=== PATIENT | female | born 1945 | race American Indian/Alaskan Native ===

== ENCOUNTER 2017-10-30 13:59 | Inpatient (IN) | payer MEDICARE, OTHER ==
--- NOTE | 2017-10-30 14:23 | ED PDOC ---
Arrival/HPI - General Chief Complaint: Medical Clearance Time Seen by Provider: 10/30/17 14:10 Historian: Patient, Family - History of Present Illness Narrative History of Present Illness (Text): 10/30/17 14:19 72yo female with no PMHx who was referred to ED by her PMD for further evaluation of abnormal abdominal/Chest CT. Patient's daughter report one month history of sudden weight loss, dizziness and poor appetite. She saw her PMD for the symptoms and had abdominal/Chest CT done outpt today. She was called by the PMD and referred to ED. she reports right ribs pain. Denies abdominal pain, nausea, vomiting, diarrhea, fever, chills, focal weakness, melena, hematmesis, chest pain, SOB, any other complaint. Past Medical History - Provider Review Nursing Documentation Reviewed: Yes - Infectious Disease Hx of Infectious Diseases: None - Psychiatric Hx Substance Use: No Family/Social History - Physician Review Nursing Documentation Reviewed: Yes Family/Social History: Unknown Family HX Smoking Status: Never Smoked Hx Alcohol Use: Yes Frequency of alcohol use: Socially Hx Substance Use: No Allergies/Home Meds Allergies/Adverse Reactions: Allergies No Known Allergies Allergy (Verified 10/30/17 14:09) Home Medications: Home Meds Medication Instructions Recorded Confirmed No Known Home Med 10/30/17 10/30/17 Review of Systems - Physician Review All systems were reviewed & negative as marked: Yes - Review of Systems Constitutional: Normal Eyes: Normal ENT: Normal Respiratory: Normal Cardiovascular: Normal Gastrointestinal: Normal Genitourinary Female: Normal Musculoskeletal: Arthralgias (Right ribs pain) Skin: Normal Neurological: Normal Endocrine: Normal Hemo/Lymphatic: Normal Psychiatric: Normal Physical Exam Vital Signs Reviewed: Yes Vital Signs Temp Pulse Resp BP Pulse Ox 10/30/17 15:41 98 H 18 152/86 H 98 10/30/17 14:05 98.6 F 105 H 18 156/94 H 98 Temperature: Afebrile Blood Pressure: Normal Pulse: Tachycardic Respiratory Rate: Normal Appearance: Positive for: Well-Appearing, Non-Toxic, Comfortable Pain Distress: None Mental Status: Positive for: Alert and Oriented X 3 - Systems Exam Head: Present: Atraumatic, Normocephalic Pupils: Present: PERRL Extroacular Muscles: Present: EOMI Conjunctiva: Present: Normal Mouth: Present: Moist Mucous Membranes Neck: Present: Normal Range of Motion Respiratory/Chest: Present: Clear to Auscultation, Good Air Exchange, Tender to Palpation (right anterior ribs). No: Respiratory Distress, Accessory Muscle Use , Wheezes, Decreased Breath Sounds, Rales, Retracting, Rhonchi, Tachypneic Cardiovascular: Present: Regular Rate and Rhythm, Normal S1, S2. No: Murmurs Abdomen: Present: Normal Bowel Sounds. No: Tenderness, Distention, Peritoneal Signs Back: Present: Normal Inspection Upper Extremity: Present: Normal Inspection. No: Cyanosis, Edema Lower Extremity: Present: Normal Inspection. No: Edema Neurological: Present: GCS=15, CN II-XII Intact, Speech Normal Skin: Present: Warm, Dry, Normal Color. No: Rashes Psychiatric: Present: Alert, Oriented x 3, Normal Insight, Normal Concentration Medical Decision Making ED Course and Treatment: 10/30/17 15:57 PT presented for stated history. Lab was unremarkable with the exception of the elevated LDH and she was given fluid in ED. Abdominal/Pelvis/chest CT Case was DW Dr. Jimenez and pt was admitted. He requested Drs. Leblanc and William consult. - Lab Interpretations Lab Results: 10/30/17 14:45 10/30/17 14:45 Lab Results 10/30/17 14:45: Sodium 137, Potassium 3.5 L, Chloride 101, Carbon Dioxide 26, Anion Gap 14, BUN 8, Creatinine 0.6 L, Est GFR ( Amer) > 60, Est GFR (Non -Af Amer) > 60, Random Glucose 109, Calcium 9.5, Total Bilirubin 0.4, AST 52 H, ALT 20, Alkaline Phosphatase 207 H, Lactate Dehydrogenase 1033 H, Total Creatine Kinase 59, Troponin I < 0.01, Total Protein 7.1, Albumin 3.3, Globulin 3.8, Albumin/Globulin Ratio 0.9 L, Amylase 52, Lipase 69 10/30/17 14:45: PT 13.1 H, INR 1.15 H, APTT 31.3 10/30/17 14:45: WBC 10.4, RBC 4.19, Hgb 11.0 L, Hct 34.4 L, MCV 82.1, MCH 26.3, MCHC 32.0, RDW 14.9 H, Plt Count 429, MPV 9.2, Gran % 73.8 H, Lymph % (Auto) 16.3 L, [place] % (Auto) 7.3 H, Eos % (Auto) 2.4, Baso % (Auto) 0.2, Gran # 7.67 H , Lymph # 1.7, [place] # 0.8 H, Eos # 0.3, Baso # 0.02 - Medication Orders Current Medication Orders: Sodium Chloride (Sodium Chloride 0.9%) 1,000 mls @ 250 mls/hr IV .Q4H ONE Stop: 10/30/17 19:23 Disposition/Present on Arrival - Present on Arrival Any Indicators Present on Arrival: No History of DVT/PE: No History of Uncontrolled Diabetes: No Urinary Catheter: No History of Decub. Ulcer: No History Surgical Site Infection Following: None - Disposition Have Diagnosis and Disposition been Completed?: Yes Diagnosis: Intussusception, Metastatic disease Disposition: HOSPITALIZED Disposition Time: 15:50 Condition: FAIR Forms: [employer] (German)
[2017-10-30 14:56] LABS: BASO # 0.02 K/mm3 (0.0-2.0); BASO % 0.2 % (0.0-3.0); EOS # 0.3 (0.0-0.7); EOS % 2.4 % (1.5-5.0); GRAN # 7.67 (1.4-6.5); GRAN % 73.8 % (50.0-68.0); LYMPH # 1.7 (1.2-3.4); LYMPH % 16.3 % (22.0-35.0); MEAN CELL VOLUME 82.1 fl (80.0-105.0); MEAN CORPUSCULAR HEMOGLOBIN 26.3 pg (25.0-35.0); MEAN PLATELET VOLUME 9.2 fl (7.0-11.0); MONO # 0.8 (0.1-0.6); MONO % 7.3 % (1.0-6.0); RBC 4.19 10^6/uL (3.5-6.1); RED CELL DISTRIBUTION WIDTH 14.9 % (11.5-14.5); WHITE BLOOD COUNT 10.4 10^3/ul (4.5-11.0)
[2017-10-30 15:16] LABS: INR 1.15 (0.93-1.08); PARTIAL THROMBOPLASTIN TIME 31.3 Seconds (25.1-36.5); PROTHROMBIN TIME 13.1 SECONDS (9.4-12.5)
--- NOTE | 2017-10-30 15:18 | CARD ---
APPROVED REPORT EKG Measurement Heart [id number] <Conclusion> Sinus tachycardia Left axis deviation Left ventricular hypertrophy with QRS widening and repolarization abnormality Abnormal ECG
[2017-10-30 15:21] LABS: ALB/GLOB RATIO 0.9 (1.1-1.8); ALBUMIN 3.3 g/dL (3.0-4.8); ALT/SGPT 20 U/L (7-56); AMYLASE 52 U/L (35-125); AST/SGOT 52 U/L (14-36); BLOOD UREA NITROGEN 8 mg/dL (7-21); CALCIUM 9.5 mg/dL (8.4-10.5); GFR AFRICAN-AMERICAN > 60; GFR NON-AFRICAN AMERICAN > 60; LIPASE 69 U/L (23-300); TROPONIN I < 0.01 ng/mL
[2017-10-30] MEDS ORDERED: Sodium Chloride 0.9% 1,000 ML IV ONE (15:24)
--- NOTE | 2017-10-30 19:56 | CP.PCM.CON ---
History of Present Illness - History of Present Illness History of Present Illness: GENERAL SURGERY CONSULT NOTE FOR DR. NEWSOME 72yo F with no significant PMHx presents to the ED after being sent by PMD for abnormal CT scan findings. About 2 months ago, she started feeling dizzy. She also had no appetite and decreased taste. She had unintentional weight loss of 20 pounds over the past month and a half. She went to her PMD who sent her for outpatient CT which showed lesions in the liver, lung, and intussusception of ascending colon with abnormal thickening of colon. She was then sent to the ED for further workup. Patient denies having any abdominal pain. Her bowel movements are normal except that after she eats, she has to go to the bathroom within the next hour. She has not had any diarrhea. No bloody stools or black stools. She vomited once yesterday. She has mild right flank pain. She has never had a colonoscopy. PMHx: none Surgeries: tubal ligation Home medications: none Allergies: none Family history: no pertinent familial history of cancer Social history: social etoh, never smoked, denies illicit drug use Review of Systems - Review of Systems All systems: reviewed and no additional remarkable complaints except (as per HPI ) Past Patient History - Infectious Disease Hx of Infectious Diseases: None - Past Social History Smoking Status: Never Smoked Alcohol: Social Drugs: Denies - CARDIAC Hx Cardiac Disorders: No - PULMONARY Hx Respiratory Disorders: No - NEUROLOGICAL Hx Neurological Disorder: No - HEENT Hx HEENT Problems: No - RENAL Hx Chronic Kidney Disease: No - ENDOCRINE/METABOLIC Hx Endocrine Disorders: No - HEMATOLOGICAL/ONCOLOGICAL Hx Blood Disorders: No - INTEGUMENTARY Hx Dermatological Problems: No - MUSCULOSKELETAL/RHEUMATOLOGICAL Hx Musculoskeletal Disorders: No - GASTROINTESTINAL Hx Gastrointestinal Disorders: No - GENITOURINARY/GYNECOLOGICAL Hx Genitourinary Disorders: No - PSYCHIATRIC Hx Psychophysiologic Disorder: No - SURGICAL HISTORY Hx Surgeries: Yes Hx Tubal Ligation: Yes Meds Allergies/Adverse Reactions: Allergies Allergy/AdvReac Type Severity Reaction Status Date / Time No Known Allergies Allergy Verified 10/30/17 14:09 Physical Exam - Constitutional Appears: Well, Non-toxic, No Acute Distress - Head Exam Head Exam: ATRAUMATIC, NORMAL INSPECTION - Eye Exam Eye Exam: EOMI, Normal appearance - Respiratory Exam Respiratory Exam: NORMAL BREATHING PATTERN. absent: Respiratory Distress - Cardiovascular Exam Cardiovascular Exam: Tachycardia (mild), +S1, +S2 - GI/Abdominal Exam GI & Abdominal Exam: Soft. absent: Distended, Firm, Guarding, Rebound, Rigid, Tenderness Additional comments: well healed scar from tubal ligation - Extremities Exam Extremities exam: Positive for: normal inspection. Negative for: calf tenderness, joint swelling - Back Exam Back exam: CVA tenderness (R). absent: CVA tenderness (L), vertebral tenderness - Neurological Exam Neurological exam: Alert, CN II-XII Intact, Oriented x3 - Psychiatric Exam Psychiatric exam: Normal Affect, Normal Mood - Skin Skin Exam: Dry, Normal Color, Warm Results - Vital Signs Recent Vital Signs: Last Vital Signs Temp 98.6 F 10/30/17 14:05 Pulse 98 H 10/30/17 15:41 Resp 18 10/30/17 17:55 BP 152/86 H 10/30/17 15:41 Pulse Ox 98 10/30/17 15:41 - Labs Result Diagrams: 10/31/17 06:00 10/31/17 06:00 Assessment & Plan - Assessment and Plan (Free Text) Assessment: 72yo F with no PMHx who presented with dizziness and weight loss and was found to have intussusception with possible metastatic colon cancer on CT - Afebrile, mild tachycardia - Mild anemia Hgb 11 - CT: large irregular hypodense lesions throughout liver; nodule in left lung; intussusception of entire ascending colon; abnormal thickening of colon but no obstruction - AFP, CEA ordered - No immediate surgical intervention for intussusception as patient is asymptomatic, having regular BMs and tolerating diet - Will need full workup for malignancy including colonoscopy with biopsy - Discussed plan with Dr. William Branch PGY-3
[2017-10-30] MEDS ORDERED: Oxycodone/Acetaminophen 5/325 mg Tab PO PRN (20:04)
[2017-10-30] MEDS ORDERED: Potassium Chloride 10 mEq ER Tab PO ONE (20:07)
[2017-10-30] MEDS: Sodium Chloride 0.9% 1,000 ML IV SCH (22:15)
[2017-10-31 01:17] LABS: PH,URINE 6.5 (4.7-8.0); URINE BILIRUBIN NEGATIVE (NEGATIVE); URINE BLOOD NEGATIVE (NEGATIVE); URINE GLUCOSE (UA) NEGATIVE (NEGATIVE); URINE LEUKOCYTE ESTERASE NEGATIVE Leu/uL (NEGATIVE); URINE NITRATE NEGATIVE (NEGATIVE); URINE PROTEIN NEGATIVE mg/dL (<30 mg/dL); URINE UROBILINOGEN 0.2 E.U./dL (<1 E.U./dL)
[2017-10-31 01:20] LABS: URINE APPEARANCE CLEAR (CLEAR); URINE COLOR YELLOW (YELLOW)
[2017-10-31 06:34] LABS: BASO # 0.02 K/mm3 (0.0-2.0); BASO % 0.2 % (0.0-3.0); EOS # 0.3 (0.0-0.7); EOS % 3.5 % (1.5-5.0); GRAN # 5.79 (1.4-6.5); GRAN % 71.4 % (50.0-68.0); HEMOGLOBIN 9.5 g/dL (12.0-16.0); LYMPH # 1.4 (1.2-3.4); LYMPH % 16.9 % (22.0-35.0); MEAN CELL VOLUME 82.8 fl (80.0-105.0); MEAN CORPUSCULAR HEMOGLOBIN 25.5 pg (25.0-35.0); MEAN CORPUSCULAR HGB CONC 30.7 g/dl (31.0-37.0); MEAN PLATELET VOLUME 9.1 fl (7.0-11.0); MONO # 0.7 (0.1-0.6); RBC 3.73 10^6/uL (3.5-6.1); RED CELL DISTRIBUTION WIDTH 15.1 % (11.5-14.5); WHITE BLOOD COUNT 8.1 10^3/ul (4.5-11.0)
[2017-10-31 07:45] LABS: ALB/GLOB RATIO 0.8 (1.1-1.8); ALBUMIN 2.8 g/dL (3.0-4.8); BLOOD UREA NITROGEN 5 mg/dL (7-21); GFR AFRICAN-AMERICAN > 60; GFR NON-AFRICAN AMERICAN > 60
[2017-10-31 08:12] LABS: ALT/SGPT 20 U/L (7-56); AST/SGOT 57 U/L (14-36); CALCIUM 8.8 mg/dL (8.4-10.5)
--- NOTE | 2017-10-31 09:58 | CP.PCM.PN ---
Subjective - Date & Time of Evaluation Date of Evaluation: 10/31/17 Time of Evaluation: 07:00 - Subjective Subjective: Surgery: Dr. Thomas Pt seen and examined. No acute overnight events. Pt states she feels well this morning and is hungry. Denies abdominal pain, N/V, F/C. Pt admits to BM and denies hematochezia. Admits to flatus. Objective - Vital Signs/Intake and Output Vital Signs (last 24 hours): Temp Pulse Resp BP Pulse Ox 99.6 F 86 18 146/85 98 10/31/17 08:31 10/31/17 08:31 10/31/17 08:31 10/31/17 08:31 10/31/17 08:31 Intake and Output: 10/31/17 10/31/17 06:59 18:59 Intake Total 0 Balance 0 - Medications Medications: Current Medications Acetaminophen (Tylenol 325mg Tab) 650 mg PO Q6H PRN PRN Reason: Pain, Mild (1-3) Sodium Chloride (Sodium Chloride 0.9%) 1,000 mls @ 100 mls/hr IV .Q10H KAYLI Last Admin: 10/30/17 22:15 Dose: 100 mls/hr Ondansetron HCl (Zofran Inj) 4 mg IVP Q4H PRN PRN Reason: Nausea/Vomiting - Labs Labs: 10/31/17 06:00 10/31/17 06:00 PT 13.1 SECONDS (9.4-12.5) H 10/30/17 14:45 INR 1.15 (0.93-1.08) H 10/30/17 14:45 APTT 31.3 Seconds (25.1-36.5) 10/30/17 14:45 - Constitutional Appears: Well, No Acute Distress - Head Exam Head Exam: ATRAUMATIC, NORMOCEPHALIC - Eye Exam Eye Exam: Normal appearance - ENT Exam ENT Exam: Mucous Membranes Moist - Respiratory Exam Respiratory Exam: NORMAL BREATHING PATTERN - Cardiovascular Exam Cardiovascular Exam: RRR - GI/Abdominal Exam GI & Abdominal Exam: Soft. absent: Distended, Guarding, Tenderness - Neurological Exam Neurological Exam: Alert, Awake, Oriented x3 - Skin Skin Exam: Dry, Intact, Warm Assessment and Plan - Assessment and Plan (Free Text) Assessment: 72F with likely metastatic colon CA as seen on CT Plan: - pt is currently not obstructed, having regular BMs and tolerating diet - No surgical intervention planned at this time - However, pt will need biopsies of her colon and will likely need a colonoscopy this admission - GI is on board and we will further discuss the plan with Dr. Leblanc - Rah on CLD for now - d/w Dr. William Camacho, PGY-3 Surgery
[2017-10-31] MEDS ORDERED: Peg-Electrolyte Oral Soln 4L (Golytely) PO ONE (11:57)
[2017-10-31] MEDS: Sodium Chloride 0.9% 1,000 ML IV SCH ×2 (14:10→21:11)
--- NOTE | 2017-10-31 15:00 | CP.PCM.CON ---
<Dee Dee Chaudhari - Last Filed: 10/31/17 15:02> History of Present Illness - History of Present Illness History of Present Illness: Seen and examined at the bedside earlier today, the chart was reviewed. Request for GI consult is for intussusception. HPI: This is a 72-year-old female with no significant past medical history was sent to the emergency room by PMD for abnormal CT scan findings. The patient is seen at the bedside with her granddaughter and mother at the bedside had complained of feeling dizzy with loss of appetite and weight loss over 2 months. The patient reports a total of 20 pounds weight loss in a month and a half tablets unintentional. The patient denies any change in bowel habits, nausea, vomiting,dysphagia. The patient had a CT scan of abdomen and pelvis yesterday which reported a 9 mm lung nodule at the left lung base as well as large irregular hypodense lesions throughout the liver the largest measured 8 x 11 C [place]. And also the appearance of intussusception in the colon, reporting the entire descending colon. The patient denies any difficulty with bowel movements, her last bowel movement was this morning and reports to be normal, denies any melena or bright red blood per rectum. She did complain of some abdominal discomfort mostly right side that radiates to her back. Patient denies EGD or colonoscopy. Past medical history: Denies any significant medical history Past surgical history: Tubal ligation Allergies: NKDA Family history: Denies any known family history of cancer Medications: Reviewed as per MAR Social history: Denies smoking, EtOH or drug use ROS: Systems reviewed with positive findings see HPI. Past Patient History - Infectious Disease Hx of Infectious Diseases: None - Past Social History Smoking Status: Never Smoked Alcohol: Social Drugs: Denies - CARDIAC Hx Cardiac Disorders: No - PULMONARY Hx Respiratory Disorders: No - NEUROLOGICAL Hx Neurological Disorder: No - HEENT Hx HEENT Problems: No - RENAL Hx Chronic Kidney Disease: No - ENDOCRINE/METABOLIC Hx Endocrine Disorders: No - HEMATOLOGICAL/ONCOLOGICAL Hx Blood Disorders: No - INTEGUMENTARY Hx Dermatological Problems: No - MUSCULOSKELETAL/RHEUMATOLOGICAL Hx Musculoskeletal Disorders: No - GASTROINTESTINAL Hx Gastrointestinal Disorders: No - GENITOURINARY/GYNECOLOGICAL Hx Genitourinary Disorders: No - PSYCHIATRIC Hx Psychophysiologic Disorder: No - SURGICAL HISTORY Hx Surgeries: Yes Hx Tubal Ligation: Yes Meds Allergies/Adverse Reactions: Allergies Allergy/AdvReac Type Severity Reaction Status Date / Time No Known Allergies Allergy Verified 10/30/17 14:09 - Medications Medications: Current Medications Acetaminophen (Tylenol 325mg Tab) 650 mg PO Q6H PRN PRN Reason: Pain, Mild (1-3) Sodium Chloride (Sodium Chloride 0.9%) 1,000 mls @ 100 mls/hr IV .Q10H KAYLI Last Admin: 10/31/17 14:10 Dose: 100 mls/hr Ondansetron HCl (Zofran Inj) 4 mg IVP Q4H PRN PRN Reason: Nausea/Vomiting Physical Exam - Constitutional Appears: No Acute Distress - Head Exam Head Exam: NORMOCEPHALIC - Eye Exam Eye Exam: Normal appearance. absent: Scleral icterus - ENT Exam ENT Exam: Mucous Membranes Moist - Neck Exam Neck exam: Negative for: Normal Inspection - Respiratory Exam Respiratory Exam: Decreased Breath Sounds, NORMAL BREATHING PATTERN. absent: Respiratory Distress - Cardiovascular Exam Cardiovascular Exam: +S1, +S2 - GI/Abdominal Exam GI & Abdominal Exam: Normal Bowel Sounds, Soft. absent: Guarding, Organomegaly , Rebound, Tenderness - Extremities Exam Extremities exam: Positive for: pedal pulses present. Negative for: calf tenderness, pedal edema - Neurological Exam Neurological exam: Alert, Oriented x3 - Skin Skin Exam: Dry, Warm Results - Vital Signs Recent Vital Signs: Last Vital Signs Temp 99.6 F 10/31/17 08:31 Pulse 86 10/31/17 08:31 Resp 18 10/31/17 08:31 BP 146/85 10/31/17 08:31 Pulse Ox 98 10/31/17 08:31 - Labs Result Diagrams: 10/31/17 06:00 10/31/17 06:00 Labs: Laboratory Results - last 24 hr 10/31/17 10/31/17 10/31/17 01:07 06:00 06:00 WBC 8.1 D RBC 3.73 Hgb 9.5 L Hct 30.9 L MCV 82.8 MCH 25.5 MCHC 30.7 L RDW 15.1 H Plt Count 410 MPV 9.1 Gran % 71.4 H Lymph % (Auto) 16.9 L [place] % (Auto) 8.0 H Eos % (Auto) 3.5 Baso % (Auto) 0.2 Gran # 5.79 Lymph # 1.4 [place] # 0.7 H Eos # 0.3 Baso # 0.02 Sodium 141 Potassium 3.7 Chloride 109 H Carbon Dioxide 26 Anion Gap 10 BUN 5 L Creatinine 0.6 L Est GFR ( Amer) > 60 Est GFR (Non-Af Amer) > 60 Random Glucose 81 Calcium 8.8 Total Bilirubin 0.4 AST 57 H ALT 20 Alkaline Phosphatase 184 H Total Protein 6.1 Albumin 2.8 L Globulin 3.3 Albumin/Globulin Ratio 0.8 L Alpha Fetoprotein Carcinoembryonic Ag Urine Color Yellow Urine Appearance Clear Urine pH 6.5 Ur Specific [place] <= 1.005 Urine Protein Negative Urine Glucose (UA) Negative Urine Ketones Negative Urine Blood Negative Urine Nitrate Negative Urine Bilirubin Negative Urine Urobilinogen 0.2 Ur Leukocyte Esterase Negative 10/31/17 10/31/17 06:00 06:00 WBC RBC Hgb Hct MCV MCH MCHC RDW Plt Count MPV Gran % Lymph % (Auto) [place] % (Auto) Eos % (Auto) Baso % (Auto) Gran # Lymph # [place] # Eos # Baso # Sodium Potassium Chloride Carbon Dioxide Anion Gap BUN Creatinine Est GFR ( Amer) Est GFR (Non-Af Amer) Random Glucose Calcium Total Bilirubin AST ALT Alkaline Phosphatase Total Protein Albumin Globulin Albumin/Globulin Ratio Alpha Fetoprotein 2.7 Carcinoembryonic Ag 119.0 H Urine Color Urine Appearance Urine pH Ur Specific [place] Urine Protein Urine Glucose (UA) Urine Ketones Urine Blood Urine Nitrate Urine Bilirubin Urine Urobilinogen Ur Leukocyte Esterase Assessment & Plan - Assessment and Plan (Free Text) Assessment: Assessment: Abnormal CT findings, a sending intussusception, liver lesion and pulmonary nodules Elevated CEA, 119.0 Anemia Weight loss Plan: Nothing by mouth, continue IV fluids for hydration Start GI prophylaxis, Pepcid 20 mg IV daily DVT prophylaxis: SCDs bruits Will plan for colonoscopy tomorrow, nothing by mouth after midnight, preparation will be with GoLYTELY, spoke to surgical forceps fabricator Dr. Avina. If patient experiences any acute pain during preparation may require immediate surgical intervention. Detailed discussion with patient and family at bedside, all questions answered. Monitor H&H Continue surgical follow-up Cardiac evaluation for abnormal EKG Will plan for colonoscopy tomorrow, nothing by mouth after midnight, preparation will be with GoLYTELY, If patient experiences any acute pain during preparation may require immediate surgical intervention,spoke to surgical forceps fabricator Dr. Milan. Detailed discussion with patient and family at bedside, all questions answered. Also discussed with Dr. Denver Crow. Thank you for this consult and for allowing us to participate in your patient's care, further recommendations based upon clinical course. Seen and discussed with Dr. Leblanc. <Rocio Leblanc V - Last Filed: 10/31/17 22:15> Meds - Medications Medications: Current Medications Acetaminophen (Tylenol 325mg Tab) 650 mg PO Q6H PRN PRN Reason: Pain, Mild (1-3) Famotidine (Pepcid) 20 mg IVP DAILY [facility] Sodium Chloride (Sodium Chloride 0.9%) 1,000 mls @ 100 mls/hr IV .Q10H KAYLI Last Admin: 10/31/17 21:11 Dose: 100 mls/hr Metoprolol Tartrate (Lopressor) 25 mg PO BID KAYLI Last Admin: 10/31/17 18:57 Dose: Not Given Ondansetron HCl (Zofran Inj) 4 mg IVP Q4H PRN PRN Reason: Nausea/Vomiting Results - Vital Signs Recent Vital Signs: Last Vital Signs Temp 98.6 F 10/31/17 18:42 Pulse 88 10/31/17 18:52 Resp 20 10/31/17 16:00 BP 168/95 H 10/31/17 18:52 Pulse Ox 100 10/31/17 16:00 - Labs Result Diagrams: 10/31/17 06:00 10/31/17 06:00 Labs: Laboratory Results - last 24 hr 10/31/17 10/31/17 10/31/17 01:07 06:00 06:00 WBC 8.1 D RBC 3.73 Hgb 9.5 L Hct 30.9 L MCV 82.8 MCH 25.5 MCHC 30.7 L RDW 15.1 H Plt Count 410 MPV 9.1 Gran % 71.4 H Lymph % (Auto) 16.9 L [place] % (Auto) 8.0 H Eos % (Auto) 3.5 Baso % (Auto) 0.2 Gran # 5.79 Lymph # 1.4 [place] # 0.7 H Eos # 0.3 Baso # 0.02 Sodium 141 Potassium 3.7 Chloride 109 H Carbon Dioxide 26 Anion Gap 10 BUN 5 L Creatinine 0.6 L Est GFR ( Amer) > 60 Est GFR (Non-Af Amer) > 60 Random Glucose 81 Calcium 8.8 Total Bilirubin 0.4 AST 57 H ALT 20 Alkaline Phosphatase 184 H Total Protein 6.1 Albumin 2.8 L Globulin 3.3 Albumin/Globulin Ratio 0.8 L Alpha Fetoprotein Carcinoembryonic Ag Urine Color Yellow Urine Appearance Clear Urine pH 6.5 Ur Specific [place] <= 1.005 Urine Protein Negative Urine Glucose (UA) Negative Urine Ketones Negative Urine Blood Negative Urine Nitrate Negative Urine Bilirubin Negative Urine Urobilinogen 0.2 Ur Leukocyte Esterase Negative 10/31/17 10/31/17 06:00 06:00 WBC RBC Hgb Hct MCV MCH MCHC RDW Plt Count MPV Gran % Lymph % (Auto) [place] % (Auto) Eos % (Auto) Baso % (Auto) Gran # Lymph # [place] # Eos # Baso # Sodium Potassium Chloride Carbon Dioxide Anion Gap BUN Creatinine Est GFR ( Amer) Est GFR (Non-Af Amer) Random Glucose Calcium Total Bilirubin AST ALT Alkaline Phosphatase Total Protein Albumin Globulin Albumin/Globulin Ratio Alpha Fetoprotein 2.7 Carcinoembryonic Ag 119.0 H Urine Color Urine Appearance Urine pH Ur Specific [place] Urine Protein Urine Glucose (UA) Urine Ketones Urine Blood Urine Nitrate Urine Bilirubin Urine Urobilinogen Ur Leukocyte Esterase Attending/Attestation - Attestation I have personally seen and examined this patient.: Yes I have fully participated in the care of the patient.: Yes I have reviewed all pertinent clinical information: Yes Notes (Text): This is an addendum to GI consult report dictated by Dee Dee Chaudhari APN.The patient was seen and examined earlier. Medical records, lab studies, imagings were reviewed. Last 24 hours events reviewed. Agreed with the above treatment plan as outlined in Dee Dee Chaudhari APN's notes the with the addition of the following admitted with significant weight loss abnormal CAT scan showing intussusception multiple hepatic lesions lung lesions significantly elevated CEA level suggestive of metastatic disease Physical exam abdomen soft no tenderness Patient is moving her bowels . Patient is on clear liquid diet tolerating Discussed with Dr. Thomas and also the surgical forceps fabricator Discussed with the patient's daughter was at bedside and also the patient at length Reasonable approach for her is to consider colonoscopy. Patient is able to tolerate liquids with no symptoms. Risks benefits and alternatives explained. Patient agreed for the colonoscopic evaluation 10/31/17 22:13
--- NOTE | 2017-11-01 00:01 | CON ---
DATE: 10/31/2017 LOCATION: The patient is in room 370, bed 1. REASON FOR CONSULTATION: Risk stratification from cardiac point of view. Patient admitted with weight loss and dizziness, one episode of vomiting, found to have intussusception. HISTORY OF PRESENT ILLNESS: Patient is a 72-year-old female who denies any history of medical disease, denies taking any medication, recently noted that her appetite went down and started losing weight. She states she lost around 20 pounds of weight in about 6 weeks. A few days ago, she was very dizzy, but she did not fall, did not have any syncope and 1 day prior to admission, she had once vomiting. Denies any bleeding. Denies any diarrhea or any change in bowel habit. Denies any hematemesis or melena. The patient has no history of any exertional chest pain or any cardiac problem in the past. PAST MEDICAL HISTORY: Past history is not significant except tubal ligation. MEDICATIONS: Patient does not take any medication. PERSONAL HISTORY: Denies smoking, denies drinking. Denies taking any illicit drugs. FAMILY HISTORY: Not significant. PHYSICAL EXAMINATION: VITAL SIGNS: Blood pressure 146/85, respirations 18, pulse 86, temperature 99.6. HEENT: Head is normocephalic. Eyes: Pupils normal. Conjunctivae slightly pale. NECK: JVP low. Carotids are equal. THORAX: AP diameter normal. LUNGS: Clear. CARDIOVASCULAR: S1, S2. ABDOMEN: No organomegaly. Bowel sounds are normal. EXTREMITIES: No clubbing, no cyanosis. LABORATORY DATA: WBC 8.1, hemoglobin 9.5, hematocrit 30.9, platelet 410. Sodium 141, potassium 3.7, BUN 5, creatinine 0.6, glucose 81. AST 57, ALT 20, alkaline phosphatase 184. Total protein 6.1, albumin 2.8, calcium 8.8. EKG showed sinus tachycardia rate about 106 per minute, left axis deviation, left ventricular hypertrophy, T inversion in I and aVL. Patient had chest, abdomen and pelvis CT scan on 10/30/2017, which showed intussusception of the ascending colon with abnormal thickening of the colon suspicious for neoplasm. The patient also had large irregular hypodense lesions seen throughout the liver and in the lung, there is a 9 mm lung nodule at the left lung base. 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 PLAN: Patient on Pepcid 20 daily, patient is getting IV fluid normal saline 100 mL per hour. The patient blood pressure elevated, also sinus tachycardia. Sinus tachycardia may be related to anemia as well as it is multifactorial, so we will add Lopressor 25 b.i.d. to help the blood pressure as well as sinus tachycardia. Echo has been already ordered by as per Dr. Crow. Patient scheduled for a colonoscopy tomorrow on 11/01/2017. So from cardiac point of view, patient is stable, so she can go for colonoscopy and if any other surgery needed, from cardiac point of view, the patient can go for surgery as a moderate risk and we will continue to follow closely and monitor her blood pressure and heart rate, and from cardiac point of view, there is no absolute contraindication for not to do surgery. I spoke to the patient, I spoke to the family also. I will continue to follow with you. Sherman Do MD
--- NOTE | 2017-11-01 01:21 | HP ---
HISTORY OF PRESENT ILLNESS: The patient is a 72-year-old female who is admitted to [facility] on 10/30/2017 on my suggestion. The patient had been lost to followup for the past 4 years. She presented for an office visit last week, complaining of 30-40 pound weight loss with nauseous and abdominal discomfort. The patient was sent for a CAT scan, which was performed and we found a nodule in the left lower lobe of the lung, which measured 9 mm. There are multiple large confluent liver metastases and there was intussusception of the ascending colon with abnormal thickening of the colon, consistent with underlying neoplasm. This report was called to me by . I, in turn, contacted the patient and suggested hospitalization for further workup. When seen in the Emergency Room, the patient is awake, alert and oriented. She voices no complaints. She has no discomfort. PAST MEDICAL HISTORY: She has essentially no past medical history. SOCIAL HISTORY: She is a nonsmoker. Nonalcoholic drinker. She is . Her daughter was with her at bedside as well as a granddaughter. REVIEW OF SYSTEMS: Otherwise, negative. PHYSICAL EXAMINATION: GENERAL: She is awake, alert and oriented with no focal neurological signs. HEAD,EYES, EARS, NOSE AND THROAT: Clear. NECK: Supple with no lymphadenopathy. No goiter. LUNGS: Clear to auscultation and percussion. HEART: Regular. No murmurs are appreciated. ABDOMEN: Soft and nontender. There is some slight midepigastric to right upper quadrant tenderness on deep palpation. No CVA tenderness. No 's punch. EXTREMITIES: Free of cyanosis, clubbing or edema. NEUROLOGIC: The patient is intact. VITAL SIGNS: She is afebrile at 98.6, blood pressure is 152/86, and heart rate is 98. LABORATORY DATA: White blood cell count is 10.4, hemoglobin and hematocrit are 11.0 and 34.4 respectively, and platelet count is 429. Sodium is 137, potassium is 3.5, blood urea nitrogen is 8, creatinine is 0.9, and glucose is 109. AST is slightly elevated at 52, ALT is 20, alkaline phosphatase is elevated at 207, and LDH is elevated at 1033. EKG shows sinus tachycardia with left axis deviation and left ventricular hypertrophy with wide QRS complexes. So, the patient is admitted, surgical consultation with Dr. Thomas, and gastroenterology consultation with Dr. Leblanc is called. Because of the patient's age and abnormal EKG, we were also calling for cardiac consultation with Dr. Martinez. The case was discussed with Dr. Leblanc and the patient will be scheduled for colonoscopy followed by probable right hemicolectomy. Cornelius Crow MD
--- NOTE | 2017-11-01 09:29 | CP.PCM.PN ---
Subjective - Date & Time of Evaluation Date of Evaluation: 11/01/17 Time of Evaluation: 07:00 - Subjective Subjective: GENERAL SURGERY PROGRESS NOTE FOR DR. NEWSOME Patient seen and examined with family at bedside. She denies any abdominal pain. No nausea or vomiting. She had a lot of BMs last night due to the bowel prep and it is now coming out clear. She is scheduled for colonoscopy today. Objective - Vital Signs/Intake and Output Vital Signs (last 24 hours): Temp Pulse Resp BP Pulse Ox 97.9 F 80 20 155/90 H 100 11/01/17 09:00 11/01/17 09:00 11/01/17 09:00 11/01/17 09:00 11/01/17 09:00 Intake and Output: 11/01/17 11/01/17 06:59 18:59 Intake Total 1200 Balance 1200 - Medications Medications: Current Medications Acetaminophen (Tylenol 325mg Tab) 650 mg PO Q6H PRN PRN Reason: Pain, Mild (1-3) Famotidine (Pepcid) 20 mg IVP DAILY [facility] Sodium Chloride (Sodium Chloride 0.9%) 1,000 mls @ 100 mls/hr IV .Q10H [facility] Last Admin: 10/31/17 21:11 Dose: 100 mls/hr Metoprolol Tartrate (Lopressor) 25 mg PO BID [facility] Last Admin: 10/31/17 18:57 Dose: Not Given Ondansetron HCl (Zofran Inj) 4 mg IVP Q4H PRN PRN Reason: Nausea/Vomiting - Labs Labs: 10/31/17 06:00 10/31/17 06:00 PT 13.1 SECONDS (9.4-12.5) H 10/30/17 14:45 INR 1.15 (0.93-1.08) H 10/30/17 14:45 APTT 31.3 Seconds (25.1-36.5) 10/30/17 14:45 - Constitutional Appears: Non-toxic, No Acute Distress - Head Exam Head Exam: ATRAUMATIC, NORMAL INSPECTION - Eye Exam Eye Exam: EOMI, Normal appearance - Respiratory Exam Respiratory Exam: NORMAL BREATHING PATTERN. absent: Respiratory Distress - Cardiovascular Exam Cardiovascular Exam: +S1, +S2 - GI/Abdominal Exam GI & Abdominal Exam: Soft. absent: Distended, Firm, Guarding, Rigid, Tenderness , Rebound - Neurological Exam Neurological Exam: Alert, Awake, Oriented x3 - Psychiatric Exam Psychiatric exam: Normal Affect, Normal Mood - Skin Skin Exam: Dry, Normal Color, Warm Assessment and Plan - Assessment and Plan (Free Text) Assessment: 72yo F with no PMHx who presented with dizziness and weight loss and was found to have intussusception with possible metastatic colon cancer on CT - Afebrile, VSS - Anemia Hgb 9.5 (11 yesterday) - CT: large irregular hypodense lesions throughout liver; nodule in left lung; intussusception of entire ascending colon; abnormal thickening of colon but no obstruction - Elevated CEA - No immediate surgical intervention for intussusception as patient is asymptomatic, having regular BMs and tolerating diet - Going for colonoscopy today. Will FU biopsy results. - Discussed plan with Dr. William Branch PGY-3
[2017-11-01 09:30] LABS: BASO # 0.02 K/mm3 (0.0-2.0); BASO % 0.3 % (0.0-3.0); EOS # 0.3 (0.0-0.7); EOS % 3.8 % (1.5-5.0); GRAN # 5.75 (1.4-6.5); GRAN % 72.7 % (50.0-68.0); HEMOGLOBIN 9.5 g/dL (12.0-16.0); LYMPH # 1.2 (1.2-3.4); LYMPH % 14.9 % (22.0-35.0); MEAN CELL VOLUME 83.2 fl (80.0-105.0); MEAN CORPUSCULAR HEMOGLOBIN 25.8 pg (25.0-35.0); MEAN PLATELET VOLUME 8.8 fl (7.0-11.0); MONO # 0.7 (0.1-0.6); MONO % 8.3 % (1.0-6.0); RBC 3.68 10^6/uL (3.5-6.1); RED CELL DISTRIBUTION WIDTH 14.9 % (11.5-14.5); WHITE BLOOD COUNT 7.9 10^3/ul (4.5-11.0)
[2017-11-01 09:41] LABS: ALT/SGPT 20 U/L (7-56); AST/SGOT 46 U/L (14-36); BLOOD UREA NITROGEN 4 mg/dL (7-21); CALCIUM 8.7 mg/dL (8.4-10.5); GFR AFRICAN-AMERICAN > 60; GFR NON-AFRICAN AMERICAN > 60
[2017-11-01 10:39] LABS: ALB/GLOB RATIO 0.8 (1.1-1.8); ALBUMIN 2.7 g/dL (3.0-4.8)
[2017-11-01] MEDS ORDERED: Propofol 10 mg/ml Inj (20 ML) ONE (11:14)
[2017-11-01] MEDS ORDERED: Midazolam 2 MG/2 ML VIAL ONE (11:15)
--- NOTE | 2017-11-01 12:44 | RAD ---
HISTORY: PLACEMENT OF LESION COMPARISON: No prior. FINDINGS: BOWEL: The study was performed during colonoscopy. The colonoscope can be seen terminating in the left upper quadrant with the tip directed downward at the junction of the transverse colon and hepatic flexure. The scope is also looped in the sigmoid colon. BONES: Normal. OTHER FINDINGS: None. IMPRESSION: As above
[2017-11-01] MEDS ORDERED: Potassium Chloride 20 mEq ER Tab PO ONE (16:12)
--- NOTE | 2017-11-01 18:48 | CARD ---
APPROVED REPORT EXAM: Two-dimensional and M-mode echocardiogram with Doppler and color Doppler. INDICATION Abnormal EKG/Arrhythmia 2D DIMENSIONS Left Atrium (2D)3.3 (1.6-4.0cm)IVSd1.2 (0.7-1.1cm) LVDd3.9 (3.9-5.9cm)PWd1.1 (0.7-1.1cm) LVDs2.9 (2.5-4.0cm)FS (%) 26.2 % LVEF (%)51.9 (>50%) M-Mode DIMENSIONS Aortic Root2.70 (2.2-3.7cm)Aortic Cusp Exc.1.80 (1.5-2.0cm) Aortic Valve AoV Peak Extmubry473.0cm/[place] Peak GR.7mmHg Mitral Valve MV E Zyvputre57.1cm/sMV A Ccvimjju77.5cm/sE/A ratio0.6 TDI E/Lateral E'0.0E/Medial E'0.0 Tricuspid Valve TR Peak Ipihrmvn270rj/sRAP [id number] Peak Gr.13mmHg [id number] LEFT VENTRICLE The left ventricle is normal size. There is borderline concentric left ventricular hypertrophy. The left ventricular function is normal.EF-55% There is normal LV segmental wall motion. Transmitral Doppler flow pattern is Grade III-reversible restrictive diastolic dysfunction. No left ventricle thrombus noted on this study. There is no ventricular septal defect visualized. There is no left ventricular aneurysm. There is no mass noted in the left ventricle. RIGHT VENTRICLE The right ventricle is normal size. There is normal right ventricular wall thickness. The right ventricular systolic function is normal. ATRIA The left atrium size is normal. The right atrium size is normal. The interatrial septum is intact with no evidence for an atrial septal defect. AORTIC VALVE The aortic valve is thickened but opens well. There is trace aortic regurgitation. There is no aortic valvular stenosis. There is no aortic valvular vegetation. MITRAL VALVE The mitral valve is thickened but opens well. Mitral regurgitation is trace. There is no mitral valve stenosis. There is no evidence of mitral valve prolapse. TRICUSPID VALVE The tricuspid valve leaflets are thickened , but open well. There is mild tricuspid regurgitation.RVSP-23 mmof H g. There is no tricuspid valve stenosis. There is no tricuspid valve prolapse or vegetation. PULMONIC VALVE The pulmonic valve is mildly thickened. There is trace to mild pulmonic valvular regurgitation. There is no pulmonic valvular stenosis. GREAT VESSELS The aortic root is normal in size. The ascending aorta is normal in size. The pulmonary artery is normal. The IVC is normal in size and collapses >50% with inspiration. PERICARDIAL EFFUSION There is no pleural effusion. There is a trace pericardial effusion. <Conclusion> Normal chamber Size. Ef-55% There is trace aortic regurgitation. Mitral regurgitation is trace. There is mild tricuspid regurgitation.RVSP-23 mmof H g. There is trace to mild pulmonic valvular regurgitation. The IVC is normal in size and collapses >50% with inspiration. There is a trace pericardial effusion.
--- NOTE | 2017-11-01 19:33 | PN ---
DATE: 11/01/2017 LOCATION: The patient is in room 366, bed 2. REASON FOR CONSULTATION: Hypertension, sinus tachycardia, and metastatic disease. SUBJECTIVE: The patient is lying flat in bed without chest pain, shortness of breath or palpitation. Denies any abdominal pain, nausea or vomiting. PHYSICAL EXAMINATION VITAL SIGNS: Blood pressure 155/93, respirations 14, pulse 91, and temperature 98.4. HEENT: Head is normocephalic. Eyes; pupils are normal. Conjunctivae slightly pale. NECK: JVP low. Carotids are equal. THORAX: AP diameter normal. LUNGS: Clear. CARDIOVASCULAR: S1 and S2. ABDOMEN: Soft. No tenderness. No organomegaly. Bowel sounds normal. EXTREMITIES: No clubbing. No cyanosis. LABORATORY DATA: WBC 7.9, hemoglobin 9.5, hematocrit 30.6, and platelets 375. Sodium 143, potassium 3.3, BUN 4, and creatinine 0.6. SGOT 46, SGPT 20, alkaline phosphatase 165, total protein 5.9, and albumin 2.7. DIAGNOSES: The patient admitted with intussusception probably carcinoma of the colon with metastasis to liver and the lung, hypertension, sinus tachycardia, anemia, and hypokalemia. PLAN: I put the patient on Lopressor 25 b.i.d. yesterday. Blood pressure still elevated although heart rate has improved. We will increase the Lopressor to 50 b.i.d. We will also give potassium. Repeat lab in the morning. Echo has been already ordered and the patient is scheduled for colonoscopy today. The patient already has been given one IV piggyback potassium 10 mEq today. We will give 20 mEq p.o. potassium now. We will repeat labs in the morning. We will follow with you. Sherman Do MD
[2017-11-02 08:05] LABS: BLOOD UREA NITROGEN 3 mg/dL (7-21); CALCIUM 8.7 mg/dL (8.4-10.5); GFR AFRICAN-AMERICAN > 60; GFR NON-AFRICAN AMERICAN > 60; MAGNESIUM 1.8 mg/dL (1.7-2.2)
--- NOTE | 2017-11-02 09:32 | CP.PCM.PN ---
Subjective - Date & Time of Evaluation Date of Evaluation: 11/02/17 Time of Evaluation: 09:08 - Subjective Subjective: Surgery: Dr. Thomas Pt seen and examined. No acute overnight events. States she feels well and would like to have something solid to eat because she's hungry. Denies N/V, F/C , chest pain or SOB. Objective - Vital Signs/Intake and Output Vital Signs (last 24 hours): Temp Pulse Resp BP Pulse Ox 99.3 F 78 18 180/94 H 95 11/01/17 16:00 11/01/17 16:00 11/01/17 16:00 11/01/17 16:40 11/01/17 16:00 Intake and Output: 11/02/17 11/02/17 06:59 18:59 Intake Total 420 120 Balance 420 120 - Medications Medications: Current Medications Acetaminophen (Tylenol 325mg Tab) 650 mg PO Q6H PRN PRN Reason: Pain, Mild (1-3) Famotidine (Pepcid) 20 mg IVP DAILY [facility] Last Admin: 11/01/17 14:54 Dose: 20 mg Sodium Chloride (Sodium Chloride 0.9%) 1,000 mls @ 100 mls/hr IV .Q10H [facility] Last Admin: 10/31/17 21:11 Dose: 100 mls/hr Sodium Chloride (Sodium Chloride 0.9%) 1,000 mls @ 100 mls/hr IV .Q10H [facility] Lisinopril (Zestril) 10 mg PO DAILY [facility] Last Admin: 11/01/17 16:40 Dose: 10 mg Metoprolol Tartrate (Lopressor) 50 mg PO BID [facility] Last Admin: 11/01/17 17:48 Dose: 50 mg Ondansetron HCl (Zofran Inj) 4 mg IVP Q4H PRN PRN Reason: Nausea/Vomiting - Labs Labs: 11/01/17 09:15 11/02/17 07:00 PT 13.1 SECONDS (9.4-12.5) H 10/30/17 14:45 INR 1.15 (0.93-1.08) H 10/30/17 14:45 APTT 31.3 Seconds (25.1-36.5) 10/30/17 14:45 - Constitutional Appears: Well, No Acute Distress - Head Exam Head Exam: ATRAUMATIC, NORMOCEPHALIC - ENT Exam ENT Exam: Mucous Membranes Moist - Respiratory Exam Respiratory Exam: NORMAL BREATHING PATTERN - Cardiovascular Exam Cardiovascular Exam: RRR - GI/Abdominal Exam GI & Abdominal Exam: Soft. absent: Distended, Tenderness - Neurological Exam Neurological Exam: Alert, Awake, Oriented x3 - Skin Skin Exam: Dry, Warm Assessment and Plan - Assessment and Plan (Free Text) Assessment: 72F with likely metastatic colon CA s/p colonoscopy with obstructing mass Plan: - pt not clinically obstructed however, after reviewing colonoscopy with Dr. Leblanc pt is noted to have an obstructing lesion in the transverse colon where the colonoscope was unable to be passed past the mass - plan for OR on saturday - d/w Dr. William Camacho, PGY-3 Surgery
[2017-11-02] MEDS ORDERED: Potassium Chloride 20 mEq/15 ml LIQ UD PO STA (13:18)
[2017-11-02] MEDS: Sodium Chloride 0.9% 1,000 ML IV SCH ×2 (14:19→23:31)
--- NOTE | 2017-11-02 19:16 | PN ---
DATE: REASON FOR CONSULTATION: Followup, hypertension, sinus tachycardia, metastatic disease. SUBJECTIVE: The patient is lying flat in the bed. Denies any chest pain, shortness of breath, or any palpitation. Obviously, not in acute distress. PHYSICAL EXAMINATION: VITAL SIGNS: As follows; temperature afebrile, heart rate 90, blood pressure 157/93. HEENT: PERRLA. Extraocular muscles intact. NECK: Supple. No carotid bruits or thyromegaly. CHEST: Clear to auscultation. HEART: S1 and S2, regular. ABDOMEN: Soft. EXTREMITIES: Clubbing and cyanosis negative. LABORATORY DATA: Blood workup as follows: WBC 7.9, hemoglobin 9.5, hematocrit 30.6, and platelet count 375. Chemistry shows sodium 140, potassium 3.5, chloride 110, carbon dioxide 23, anion gap of 11, BUN , and creatinine 0.6. IMPRESSION: Protein-calorie malnutrition, albumin 2.7, which is moderate, which was not present on admission; hypokalemia; amenia; carcinoma of the colon with metastasis to the liver and lung; hypertension; sinus tachycardia improved with Lopressor, blood pressure is maintained; however, diastolic is still higher side. The patient had most recently echo done yesterday that showed an ejection fraction of 55%, trace aortic regurgitation, trace mitral regurgitation, mild tricuspid regurgitation, systolic pressure of 23. Supplement potassium. Increase Lopressor to 50 b.i.d. Systolic blood pressure is elevated. We will increase lisinopril to 20 mg from tomorrow. We will give a 10 mg extra dose. We will follow with you and start p.r.n. hydralazine. We will follow with you. Metastatic colonic disease, status post colonoscopy with obstructing mass. PLAN: For OR on Saturday. Given the urgency of underlying condition, the patient is cleared from cardiac point of view to undergo, the patient has normal echo. The risk and benefit ratio is in favor of the patient to have surgery done. No further cardiac workup as preop is required. Optimize medical treatment, blood pressure control as well as continue with beta-glendy. The patient is cleared from cardiac point of view with moderate risk due to underlying condition. We will supplement potassium. We will increase nutritional support with Ensure pudding. We will give p.o. Elixir and will give lisinopril 10 mg stat dose. If increase in her blood pressure, we will put p.r.n. hydralazine for systolic more than 170. Also, we will increase supplement for ensure pudding for protein-calorie malnutrition which is moderate. We will follow with you. Thank you for providing us the opportunity in taking care of the patient. Sherman Martinez MD
--- NOTE | 2017-11-03 06:26 | CP.PCM.PN ---
Subjective - Date & Time of Evaluation Date of Evaluation: 11/03/17 Time of Evaluation: 06:21 - Subjective Subjective: Surgery: Dr. Thomas Pt seen and examined. No acute events overnight. States she is feeling well. Tolerating liquids. Denies Any complaints at this time. No F/C, N/V. Objective - Vital Signs/Intake and Output Vital Signs (last 24 hours): Temp Pulse Resp BP Pulse Ox 98.7 F 76 20 140/86 95 11/03/17 00:30 11/03/17 00:30 11/03/17 00:30 11/03/17 00:30 11/03/17 00:30 Intake and Output: 11/02/17 11/03/17 18:59 06:59 Intake Total 120 300 Balance 120 300 - Medications Medications: Current Medications Acetaminophen (Tylenol 325mg Tab) 650 mg PO Q6H PRN PRN Reason: Pain, Mild (1-3) Famotidine (Pepcid) 20 mg IVP DAILY [facility] Last Admin: 11/02/17 09:51 Dose: 20 mg Hydralazine HCl (Apresoline) 10 mg PO QID PRN PRN Reason: for sbp>170 Sodium Chloride (Sodium Chloride 0.9%) 1,000 mls @ 100 mls/hr IV .Q10H [facility] Last Admin: 11/02/17 23:31 Dose: 100 mls/hr Lisinopril (Zestril) 20 mg PO DAILY [facility] Metoprolol Tartrate (Lopressor) 50 mg PO BID [facility] Last Admin: 11/02/17 17:08 Dose: 50 mg Ondansetron HCl (Zofran Inj) 4 mg IVP Q4H PRN PRN Reason: Nausea/Vomiting - Labs Labs: 11/01/17 09:15 11/02/17 07:00 PT 13.1 SECONDS (9.4-12.5) H 10/30/17 14:45 INR 1.15 (0.93-1.08) H 10/30/17 14:45 APTT 31.3 Seconds (25.1-36.5) 10/30/17 14:45 - Constitutional Appears: Well, No Acute Distress - Eye Exam Eye Exam: Normal appearance - ENT Exam ENT Exam: Mucous Membranes Moist - Respiratory Exam Respiratory Exam: NORMAL BREATHING PATTERN - Cardiovascular Exam Cardiovascular Exam: RRR - GI/Abdominal Exam GI & Abdominal Exam: Soft. absent: Distended, Guarding, Tenderness - Extremities Exam Extremities Exam: absent: Tenderness - Neurological Exam Neurological Exam: Alert, Awake, Oriented x3 - Skin Skin Exam: Dry, Intact, Warm Assessment and Plan - Assessment and Plan (Free Text) Assessment: 72F with nearly obstructing mass in colon likley colon CA with mets to the liver Plan: - OR on saturday for resection of colon mass - pt risk stratified by cardio and is being medically optimized with better BP control - will pre-op/prep tomorrow for the OR - d/w Dr. William Camacho, PGY-3 Surgery
[2017-11-03] MEDS: Sodium Chloride 0.9% 1,000 ML IV SCH ×2 (09:55→20:11)
--- NOTE | 2017-11-03 16:08 | PN ---
DATE: REASON FOR CONSULTATION AND FOLLOWUP: Hypertension, sinus tachycardia, and metastatic disease. SUBJECTIVE: The patient is sitting at the bedside. Denies any chest pain, shortness of breath or any palpitations. PHYSICAL EXAMINATION: GENERAL: Not in apparent distress. VITAL SIGNS: As follows; temperature afebrile, heart rate 78, and blood pressure 140/86. HEENT: PERRLA. Extraocular muscles intact. NECK: Supple. No carotid bruits or thyromegaly. CHEST: Clear to auscultation. HEART: S1 and S2 regular. ABDOMEN: Soft. EXTREMITIES: Clubbing and cyanosis negative. LABORATORY DATA: Blood workup as follows WBC 7.9, hemoglobin 9.5, hematocrit 30.6, and platelet count 325 as of 11/01/2017. Yesterday, BUN 3, creatinine 0.6,and potassium was 3.5. IMPRESSION: Protein-calorie malnutrition, albumin 2.7, which is moderate, which was not present on admission, hypokalemia, anemia, carcinoma of the colon, metastasis to the liver and lung, hypertension, chronic mass needs OR. Blood pressure is optimizing on optimum medical treatment though diastolic is still high off and on. Most recent echo done yesterday showed ejection fraction of 55%, trace aortic regurgitation, trace mitral regurgitation, and mild tricuspid regurgitation, right ventricular systolic pressure of 23. RECOMMENDATIONS: Supple potassium, increase metoprolol to 50 mg b.i.d. We will increase lisinopril to 20 from today, yesterday was given extra dose of 10. Now to optimize medical treatment, the patient has an OR scheduled for Saturday. Given the patient's history and risk and benefit ratio in favor of the patient to have surgery and the patient is cleared from cardiac point view with a moderate to high risk of underlying comorbidity, but no absolute contraindication. As mentioned, the patient's echo shows preserved LV function. We will manage aggressive medical treatment and try to maintain as the blood pressure goes to the OR. We will notify OR and surgeon that the patient is cleared from cardiac point of view with a moderate risk, no absolute contraindication. We will follow the labs tomorrow. We will repeat the blood work up in the morning as a preop to see if any deficiency in the electrolytes, which can be corrected before the patient goes to the OR, but again the patient is cleared to go to the OR. Lisinopril 20 mg from today and metoprolol [address] Crow, for providing us the opportunity in taking care of the patient, Pippa Mccurdy. Sherman Martinez MD
[2017-11-03] MEDS ORDERED: Potassium Chloride 20 mEq/15 ml LIQ UD PO STA (17:20)
[2017-11-03] MEDS ORDERED: guaiFENesin 100 mg/5 ml Syrup UD PO PRN (19:12)
[2017-11-04] MEDS: Sodium Chloride 0.9% 1,000 ML IV SCH ×2 (06:24→16:50)
[2017-11-04 06:28] LABS: BASO # 0.01 K/mm3 (0.0-2.0); BASO % 0.1 % (0.0-3.0); EOS # 0.2 (0.0-0.7); EOS % 2.6 % (1.5-5.0); GRAN # 6.76 (1.4-6.5); GRAN % 76.5 % (50.0-68.0); HEMOGLOBIN 9.4 g/dL (12.0-16.0); LYMPH # 1.3 (1.2-3.4); LYMPH % 14.1 % (22.0-35.0); MEAN CELL VOLUME 81.5 fl (80.0-105.0); MEAN CORPUSCULAR HEMOGLOBIN 25.5 pg (25.0-35.0); MEAN CORPUSCULAR HGB CONC 31.3 g/dl (31.0-37.0); MEAN PLATELET VOLUME 9.1 fl (7.0-11.0); MONO # 0.6 (0.1-0.6); MONO % 6.7 % (1.0-6.0); RBC 3.68 10^6/uL (3.5-6.1); RED CELL DISTRIBUTION WIDTH 15.3 % (11.5-14.5); WHITE BLOOD COUNT 8.8 10^3/ul (4.5-11.0)
[2017-11-04 07:14] LABS: ALB/GLOB RATIO 0.8 (1.1-1.8); ALBUMIN 2.6 g/dL (3.0-4.8); ALT/SGPT 21 U/L (7-56); AST/SGOT 48 U/L (14-36); BLOOD UREA NITROGEN < 2 mg/dL (7-21); CALCIUM 8.5 mg/dL (8.4-10.5); GFR AFRICAN-AMERICAN > 60; GFR NON-AFRICAN AMERICAN > 60; MAGNESIUM 1.7 mg/dL (1.7-2.2)
--- NOTE | 2017-11-04 10:07 | PN ---
DATE: 11/02/2017 SUBJECTIVE: This patient was seen and evaluated earlier today. The patient denies any complaint of abdominal pain, on clear liquid diet. PHYSICAL EXAMINATION: VITAL SIGNS: Temperature is 98.4, pulse 90 and blood pressure 152/74. HEENT: Atraumatic and anicteric. NECK: Supple. HEART: S1 and S2 heard. LUNGS: Bilateral air entry present. ABDOMEN: Soft. No tenderness. EXTREMITIES: No edema. No cyanosis. LABORATORY DATA: Hemoglobin 9.5, hematocrit 30.6, WBC 7.9, and platelets 375. BUN 3, creatinine 0.6, and potassium is 3.5. IMPRESSION AND PLAN: This is a 72-year-old patient with intussusception that is status post colonoscopy showed an obstructing lesion in the distal transverse colon, biopsy is done. Abdominal x-ray was taken to localize the site of the obstruction. Detailed discussion with the Surgical Team. They planned for surgery on Saturday. Would recommend to keep the patient on a clear liquid diet, in view of this near complete obstruction at this level. The patient has a potassium of 3.5, would supplement the potassium. The patient encouraged to ambulation. Thank you very much for allowing us to participate in the care of the patient. Rocio Leblanc MD MTDAlanna
--- NOTE | 2017-11-04 10:17 | PN ---
DATE: 11/03/2017 SUBJECTIVE: This patient is on a liquid diet, moving her bowel. No complains of any abdominal pain. PHYSICAL EXAMINATION: VITAL SIGNS: Temperature is 98.3, blood pressure is 151/83, pulse 78, respirations 20, O2 saturation 96. HEENT: Atraumatic, anicteric. NECK: Supple. HEART: S1 and S2 heard. LUNGS: Bilateral air entry present. ABDOMEN: Soft. No tenderness. LABORATORY DATA: Potassium 3.5, BUN 3, creatinine 0.6. The patient would supplement potassium. IMPRESSION AND PLAN: The patient has a intussusception of the obstructing lesion in the transverse colon. The portion of the lesion site was localization the scope was confirmed with an abdominal x-ray. We will continue the clear liquid diet. Plan for surgery on Saturday. Followup of the biopsy report. Supplement potassium. Thank you very much for allowing us to participate in the care of the patient. Rocio Leblanc MD
[2017-11-04] MEDS ORDERED: Potassium Phosphate 15 MMOLE in Sodium Chloride 0.9% 250 ML IVPB ONE (12:38)
--- NOTE | 2017-11-04 14:29 | PN ---
DATE: 11/04/2017 LOCATION: The patient is in room number 366, bed 2. REASON FOR CONSULTATION AND FOLLOWUP: Hypertension, sinus tachycardia, and metastatic disease. SUBJECTIVE: The patient denies any chest pain, shortness of breath, or palpitation. PHYSICAL EXAMINATION: VITAL SIGNS: Blood pressure of 144/94, respirations of 19, pulse of 104, and temperature of 101.4. HEENT: Head is normocephalic. Eyes; pupils are normal. Conjunctivae slightly pale. NECK: JVP is low. Carotids are equal. THORAX: AP diameter normal. LUNGS: Clear. CARDIOVASCULAR: S1 and S2. ABDOMEN: Bowel sounds are normal. EXTREMITIES: No clubbing. No cyanosis. LABORATORY DATA: WBC of 8.8, hemoglobin of 9.4, hematocrit of 30.0, and platelets of 438. Sodium of 142, potassium of 3.0, BUN is less than 2, and creatinine is 0.5. Glucose of 89, calcium of 8.5, magnesium of 1.7, and phosphorus of 2.1. AST of 48, ALT of 21, total protein of 5.9, and albumin of 2.6. DIAGNOSTIC DATA: Echo showed normal chamber sizes, LV ejection fraction 55% which is normal, trace aortic regurgitation, mitral regurgitation also traced and mild tricuspid regurgitation, normal RVSP, and trace to mild pulmonic regurgitation. Echo did not show any significant abnormality. 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 PLAN: We will stop Lopressor. We will add atenolol 25 mg b.i.d. and we will give Norvasc 5 mg p.o. today also. We will give K-Phos because of low phosphorus. The patient already received . The patient is also on Zestril 20 mg p.o. daily and hydralazine 10 mg p.o. q.i.d. p.r.n. We will follow with you. Sherman Do MD
[2017-11-04] MEDS ORDERED: POLYETHYLENE GLYCOL 3350 17 GM/Dose PACKET PO ONE (15:51)
--- NOTE | 2017-11-04 16:00 | CP.PCM.PN ---
Subjective - Date & Time of Evaluation Date of Evaluation: 11/04/17 Time of Evaluation: 07:00 - Subjective Subjective: Surgery: Dr. Thomas Pt seen and examined. No acute overnight events. Pt states she feels fine, she does admit to a dry cough but otherwise denies complaints. No N/V, F/C. Objective - Vital Signs/Intake and Output Vital Signs (last 24 hours): Temp Pulse Resp BP Pulse Ox 101.4 F H 81 19 148/89 99 11/04/17 09:26 11/04/17 13:39 11/04/17 09:26 11/04/17 13:39 11/04/17 09:26 Intake and Output: 11/04/17 11/04/17 06:59 18:59 Intake Total 1650 Balance 1650 - Medications Medications: Current Medications Acetaminophen (Tylenol 325mg Tab) 650 mg PO Q6H PRN PRN Reason: Pain, Mild (1-3) Last Admin: 11/04/17 08:44 Dose: 650 mg Atenolol (Tenormin) 25 mg PO BID [facility] Benzonatate (Tessalon Perles) 100 mg PO TID [facility] Last Admin: 11/04/17 13:40 Dose: 100 mg Benzonatate (Tessalon Perles) 100 mg PO ONCE ONE Stop: 11/04/17 19:29 Famotidine (Pepcid) 20 mg IVP DAILY [facility] Last Admin: 11/04/17 11:11 Dose: 20 mg Guaifenesin (Robitussin) 100 mg PO Q4H PRN PRN Reason: Cough Last Admin: 11/03/17 19:25 Dose: 100 mg Hydralazine HCl (Apresoline) 10 mg PO QID PRN PRN Reason: for sbp>170 Last Admin: 11/04/17 08:43 Dose: 10 mg Sodium Chloride (Sodium Chloride 0.9%) 1,000 mls @ 100 mls/hr IV .Q10H [facility] Last Admin: 11/04/17 06:24 Dose: 100 mls/hr Potassium Phosphate 15 mmole/ (Sodium Chloride) 255 mls @ 42.5 mls/hr IVPB ONCE ONE Stop: 11/04/17 18:37 Lisinopril (Zestril) 20 mg PO DAILY [facility] Last Admin: 11/04/17 11:10 Dose: 20 mg Ondansetron HCl (Zofran Inj) 4 mg IVP Q4H PRN PRN Reason: Nausea/Vomiting - Labs Labs: 11/04/17 05:30 11/04/17 05:30 PT 13.1 SECONDS (9.4-12.5) H 10/30/17 14:45 INR 1.15 (0.93-1.08) H 10/30/17 14:45 APTT 31.3 Seconds (25.1-36.5) 10/30/17 14:45 - Constitutional Appears: Well, No Acute Distress - Head Exam Head Exam: ATRAUMATIC, NORMOCEPHALIC - Eye Exam Eye Exam: Normal appearance - ENT Exam ENT Exam: Mucous Membranes Moist - Respiratory Exam Respiratory Exam: NORMAL BREATHING PATTERN - Cardiovascular Exam Cardiovascular Exam: RRR - GI/Abdominal Exam GI & Abdominal Exam: Soft. absent: Tenderness - Extremities Exam Extremities Exam: absent: Tenderness - Neurological Exam Neurological Exam: Alert, Awake, Oriented x3 Assessment and Plan - Assessment and Plan (Free Text) Assessment: 72F with likely metastatic colon CA, & obstructing mass in ascending colon Plan: - OR tomorrow morning for resection of colon mass - keep NPO after midnight - d/w Dr. William Camacho, PGY-3 Surgery
--- NOTE | 2017-11-04 16:47 | RAD ---
HISTORY: Preop. Portable study 16:15 COMPARISON: No prior. FINDINGS: LUNGS: No active pulmonary disease. PLEURA: No significant pleural effusion identified, no pneumothorax apparent. CARDIOVASCULAR: Normal. OSSEOUS STRUCTURES: No significant abnormalities. VISUALIZED UPPER ABDOMEN: Normal. OTHER FINDINGS: None. IMPRESSION: No active disease.
[2017-11-04 20:37] LABS: BASO # 0.01 K/mm3 (0.0-2.0); BASO % 0.2 % (0.0-3.0); EOS # 0.1 (0.0-0.7); EOS % 1.4 % (1.5-5.0); GRAN # 5.27 (1.4-6.5); GRAN % 82.2 % (50.0-68.0); HEMOGLOBIN 8.9 g/dL (12.0-16.0); LYMPH # 0.6 (1.2-3.4); LYMPH % 9.5 % (22.0-35.0); MEAN CELL VOLUME 80.8 fl (80.0-105.0); MEAN CORPUSCULAR HEMOGLOBIN 25.1 pg (25.0-35.0); MEAN PLATELET VOLUME 9.1 fl (7.0-11.0); MONO # 0.4 (0.1-0.6); MONO % 6.7 % (1.0-6.0); RBC 3.55 10^6/uL (3.5-6.1); RED CELL DISTRIBUTION WIDTH 15.2 % (11.5-14.5); WHITE BLOOD COUNT 6.4 10^3/ul (4.5-11.0)
[2017-11-05] MEDS ORDERED: Midazolam 2 MG/2 ML VIAL ONE (07:26)
[2017-11-05] MEDS ORDERED: Propofol 10 mg/ml Inj (20 ML) ONE ×2 (07:26→08:50)
[2017-11-05 08:05] LABS: ALBUMIN 2.6 g/dL (3.0-4.8); ALT/SGPT 18 U/L (7-56); AST/SGOT 45 U/L (14-36); BLOOD UREA NITROGEN 3 mg/dL (7-21); CALCIUM 8.4 mg/dL (8.4-10.5); GFR AFRICAN-AMERICAN > 60; GFR NON-AFRICAN AMERICAN > 60; MAGNESIUM 1.7 mg/dL (1.7-2.2)
[2017-11-05] MEDS ORDERED: metroNIDAZOLE IV 500 mg/100 ml 500 MG/100 ML BAG ONE (08:12)
[2017-11-05] MEDS ORDERED: Piperacillin/Tazobact 3.375 gm Inj IVPB ONE (08:16)
[2017-11-05 08:17] LABS: BASO # 0.02 K/mm3 (0.0-2.0); BASO % 0.2 % (0.0-3.0); EOS % 0.4 % (1.5-5.0); GRAN # 6.56 (1.4-6.5); GRAN % 79.4 % (50.0-68.0); HEMOGLOBIN 9.1 g/dL (12.0-16.0); LYMPH % 12.1 % (22.0-35.0); MEAN CELL VOLUME 81.2 fl (80.0-105.0); MEAN CORPUSCULAR HEMOGLOBIN 25.1 pg (25.0-35.0); MEAN PLATELET VOLUME 9.1 fl (7.0-11.0); MONO # 0.7 (0.1-0.6); MONO % 7.9 % (1.0-6.0); RBC 3.62 10^6/uL (3.5-6.1); RED CELL DISTRIBUTION WIDTH 15.4 % (11.5-14.5); WHITE BLOOD COUNT 8.3 10^3/ul (4.5-11.0)
[2017-11-05] MEDS: Bupivacaine 0.5% Inj(30mL) ONE ×2 (08:20→10:37)
[2017-11-05 08:24] LABS: ALB/GLOB RATIO 0.8 (1.1-1.8)
--- NOTE | 2017-11-05 08:37 | PN ---
DATE: 11/04/2017 SUBJECTIVE: This patient was seen and evaluated earlier today, tolerating a liquid diet, and has bowel movements. No complaints of any abdominal pain. PHYSICAL EXAMINATION: GENERAL: The patient was seen and evaluated earlier today. At that time, the patient was afebrile. VITAL SIGNS: The patient spiked temperature spike to 101.4 and pulse of 88. HEENT: Atraumatic. Anicteric. NECK: Supple. HEART: S1 and S2 heard. LUNGS: Bilateral air entry present. ABDOMEN: Soft. No tenderness. EXTREMITIES: No cyanosis and no clubbing. LABORATORY DATA: Hemoglobin of 9.4, hematocrit of 30, WBC of 8.0, and platelets of 438. Potassium is 3.0 and alkaline phosphatase is 168. IMPRESSION AND PLAN: This 72-year-old patient with intussusception into the proximal distal transverse colon. The patient did spike fever today. Follow up of the cultures and antibiotics as per Infectious Diseases. The patient had a fever now. The patient will continue the antibiotics. The patient presently not on any antibiotics, will follow up of the cultures and we will start the patient on antibiotics ceftriaxone and Flagyl. Thank you very much for allowing us to participate in the care of the patient. The patient is also being followed by the Surgery. Rocio Leblanc MD
[2017-11-05 08:47] LABS: INR 1.37 (0.93-1.08); PROTHROMBIN TIME 15.9 SECONDS (9.4-12.5)
[2017-11-05] MEDS ORDERED: Rocuronium 10 mg/ml (5 ml) ONE (08:50)
[2017-11-05] MEDS ORDERED: Succinylcholine 200 mg/10 ml Inj IV ONE (08:50)
[2017-11-05] MEDS ORDERED: HYDROmorphone 0.5 mg/0.5 ml ISec IVP PRN (09:07)
[2017-11-05] MEDS ORDERED: Desflurane Inhalation Anesthetic Liq (240 ml) ONE (09:11)
[2017-11-05] MEDS ORDERED: Lactated Ringer's 1,000 ML IV SCH (09:15)
[2017-11-05] MEDS ORDERED: Neostigmine Methylsulfate 3mg/3ml Syringe IV ONE (10:44)
[2017-11-05] MEDS ORDERED: Oxycodone/Acetaminophen 5/325 mg Tab PO PRN (11:14)
--- NOTE | 2017-11-05 11:24 | PCM.SURG1 ---
Surgeon's Initial Post Op Note - Surgeon's Notes Surgeon: Dr. Thomas Senior Manufacturing Test Engineer: Dr. Branch PGY-3, Dr. Camacho PGY-3, Tika Watson OMS-III Type of Anesthesia: General Endo, Local Anesthesia Administered By: Dr. Mandel Pre-Operative Diagnosis: Colon mass, liver mass, intussusception Operative Findings: Ascending colon intussuscepting into transverse colon. Cecal mass. Liver mets. Post-Operative Diagnosis: Cecal mass, intussusception, liver mets Operation Performed: 1) Laparoscopic converted to open right hemicolectomy 2) Liver biopsy Specimen/Specimens Removed: right colon, appendix, liver biopsy Estimated Blood Loss: EBL {In ML}: 75 Blood Products Given: N/A Drains Used: No Drains Post-Op Condition: Poor Date of Surgery/Procedure: 11/05/17 Time of Surgery/Procedure: 08:00
[2017-11-05] MEDS ORDERED: Piperacillin/Tazobact 3.375 gm 100 ML IVPB SCH (12:00)
[2017-11-05] MEDS: Metoprolol 1 mg/ml Inj IV SCH ×3 (12:42→22:31)
[2017-11-05] MEDS: HYDROmorphone 0.5 mg/0.5 ml ISec IVP PRN (12:57)
[2017-11-05 13:38] LABS: BLOOD UREA NITROGEN 4 mg/dL (7-21); CALCIUM 8.4 mg/dL (8.4-10.5); GFR AFRICAN-AMERICAN > 60; GFR NON-AFRICAN AMERICAN > 60
--- NOTE | 2017-11-05 13:49 | PN ---
DATE: 11/05/2017 REASON FOR CONSULTATION: Preoperative evaluation and risk stratification for intestinal obstruction, history of hypertension, and sinus tachycardia. SUBJECTIVE: The patient denies any chest pain, shortness of breath, or any palpitation, n.p.o. and awaiting to go to the OR. OBJECTIVE/PHYSICAL EXAMINATION: As follows: GENERAL: Not in apparent distress. VITAL SIGNS: Temperature of 102.8, heart rate of 77, and blood pressure of 158/84. HEENT: PERRLA. Extraocular muscles are intact. NECK: Supple. No carotid bruits or thyromegaly. LUNGS: Clear to auscultation. HEART: S1 and S2 regular. ABDOMEN: Soft. EXTREMITIES: Clubbing and cyanosis negative. LABORATORY DATA: WBC of 8.3, hemoglobin of 9.1, hematocrit of 29.4, and platelet count of 414. Chemistry shows sodium of 140, potassium of 3.0, chloride of 101, carbon dioxide of 24, anion gap of 11, BUN of 3, and creatinine of 0.6. IMPRESSION: 1. Carcinoma of the colon with metastasis to the liver and lung. 2. Hypertension. 3. Sinus tachycardia. 4. Anemia. 5. Hypokalemia. 6. Intestinal obstruction requiring to go to the OR is scheduled for today. The patient is n.p.o. Most recently Echo showed ejection fraction of 55%, trace aortic regurgitation, mitral regurgitation, mild tricuspid regurgitation, and right ventricular systolic pressure of 23. The patient has fever today. RECOMMENDATIONS: Supplement potassium and the patient is preop for OR. Risk and benefit ratio is in favor for the patient to go to the OR due to intestinal obstruction because of comorbidity, the patient is at high risk for any kind of surgery. We will change the hydralazine to IV q. 6 hours. p.r.n. and repeat SMA-7 at 2:00 p.m., postoperatively to check the electrolyte. I will also check phosphate tomorrow. I will change metoprolol and hydralazine p.r.n. We will give 5 mg of Lopressor IV q. 6 hours., hold for heart rate less than 16, blood pressure less than 110 and will also start hydralazine 10 mg IV q. 6 hours. p.r.n. for systolic more than 160, till the patient remains n.p.o. We will repeat SMA-7 at 3:00 p.m. and repeat calcium, magnesium phosphate and CMP tomorrow. Thank you Dr. Murphy for providing us the opportunity in taking care of the patient. Sherman Martinez MD
[2017-11-05] MEDS: Piperacillin/Tazobact 3.375 gm 100 ML IVPB SCH ×2 (13:54→20:10)
[2017-11-06] MEDS: Metoprolol 1 mg/ml Inj IV SCH ×3 (04:55→15:38)
[2017-11-06] MEDS: HYDROmorphone 0.5 mg/0.5 ml ISec IVP PRN ×2 (06:24→17:12)
[2017-11-06 08:06] LABS: BASO # 0.01 K/mm3 (0.0-2.0); BASO % 0.1 % (0.0-3.0); GRAN # 11.78 (1.4-6.5); GRAN % 87.2 % (50.0-68.0); HEMOGLOBIN 10.9 g/dL (12.0-16.0); LYMPH % 7.6 % (22.0-35.0); MEAN CELL VOLUME 81.5 fl (80.0-105.0); MEAN CORPUSCULAR HEMOGLOBIN 25.5 pg (25.0-35.0); MEAN CORPUSCULAR HGB CONC 31.2 g/dl (31.0-37.0); MEAN PLATELET VOLUME 9.2 fl (7.0-11.0); MONO # 0.7 (0.1-0.6); MONO % 5.1 % (1.0-6.0); RBC 4.28 10^6/uL (3.5-6.1); RED CELL DISTRIBUTION WIDTH 15.4 % (11.5-14.5); WHITE BLOOD COUNT 13.5 10^3/ul (4.5-11.0)
[2017-11-06 08:17] LABS: ALB/GLOB RATIO 0.8 (1.1-1.8); ALBUMIN 2.3 g/dL (3.0-4.8); ALT/SGPT 22 U/L (7-56); AST/SGOT 53 U/L (14-36); BLOOD UREA NITROGEN 9 mg/dL (7-21); CALCIUM 8.8 mg/dL (8.4-10.5); GFR AFRICAN-AMERICAN > 60; GFR NON-AFRICAN AMERICAN > 60; MAGNESIUM 1.7 mg/dL (1.7-2.2)
[2017-11-06] MEDS: Enoxaparin 40 mg Syringe SC SCH (10:30)
--- NOTE | 2017-11-06 10:38 | PN ---
DATE: 11/05/2017 SUBJECTIVE: The patient was seen this Saturday, , shortly after returning to the floor from the OR. Surgery apparently went well. PHYSICAL EXAMINATION: GENERAL: She is awake, moving all extremities. LUNGS: Show good aeration in right and left. ABDOMEN: Has dressing in place, soft; but, quiet. PLAN : I spoke with the patient and her family at the bedside. We will follow her closely in the postoperative period. She ultimately, will need oncology followup. Cristi Crow MD
--- NOTE | 2017-11-06 12:33 | CP.PCM.PN ---
Subjective - Date & Time of Evaluation Date of Evaluation: 11/06/17 Time of Evaluation: 09:00 - Subjective Subjective: GENERAL SURGERY PROGRESS NOTE FOR DR. NEWSOME Patient seen and examined with family at bedside. She states that her abdominal was 8/10 but went away while she was sleeping. Reports pain is well controlled now with pain medication. She denies nausea or vomiting. She hasn't passed flatus or had a BM yet. She hasn't ambulated yet but states that she is planning to today. She is using her IS. Objective - Vital Signs/Intake and Output Vital Signs (last 24 hours): Temp Pulse Resp BP Pulse Ox 98.2 F 66 21 166/94 H 96 11/06/17 10:04 11/06/17 10:04 11/06/17 10:04 11/06/17 10:04 11/06/17 10:04 Intake and Output: 11/06/17 11/06/17 06:59 18:59 Intake Total 0 Output Total 825 Balance -825 - Medications Medications: Current Medications Acetaminophen (Tylenol 325mg Tab) 650 mg PO Q6H PRN PRN Reason: Pain, Mild (1-3) Last Admin: 11/04/17 18:38 Dose: 650 mg Atenolol (Tenormin) 25 mg PO BID [facility] Last Admin: 11/06/17 10:30 Dose: 25 mg Benzonatate (Tessalon Perles) 100 mg PO TID [facility] Last Admin: 11/06/17 10:31 Dose: 100 mg Enoxaparin Sodium (Lovenox) 40 mg SC DAILY [facility] PRN Reason: Protocol Last Admin: 11/06/17 10:30 Dose: 40 mg Guaifenesin (Robitussin) 100 mg PO Q4H PRN PRN Reason: Cough Last Admin: 11/03/17 19:25 Dose: 100 mg Hydralazine HCl (Apresoline) 10 mg PO QID PRN PRN Reason: for sbp>170 Last Admin: 11/04/17 08:43 Dose: 10 mg Hydralazine HCl (Apresoline) 10 mg IVP Q6 PRN PRN Reason: for SBP>160 Hydromorphone HCl (Dilaudid) 0.5 mg IVP Q4H PRN PRN Reason: Pain, moderate (4-7) Last Admin: 11/06/17 06:24 Dose: 0.5 mg Sodium Chloride (Sodium Chloride 0.9%) 1,000 mls @ 100 mls/hr IV .Q10H [facility] Last Admin: 11/04/17 16:50 Dose: 100 mls/hr Lisinopril (Zestril) 20 mg PO DAILY [facility] Last Admin: 11/06/17 10:31 Dose: 20 mg Metoprolol Tartrate (Lopressor) 5 mg IV Q6H [facility] Last Admin: 11/06/17 10:28 Dose: Not Given Ondansetron HCl (Zofran Inj) 4 mg IVP Q4H PRN PRN Reason: Nausea/Vomiting Ondansetron HCl (Zofran Inj) 4 mg IVP ONCE PRN PRN Reason: Nausea/Vomiting Oxycodone/Acetaminophen (Percocet 5/325 Mg Tab) 1 tab PO Q4H PRN PRN Reason: Pain, Mild (1-3) Stop: 11/08/17 11:15 - Labs Labs: 11/06/17 06:00 11/06/17 05:00 PT 15.9 SECONDS (9.4-12.5) H 11/05/17 08:13 INR 1.37 (0.93-1.08) H 11/05/17 08:13 APTT 32.0 Seconds (25.1-36.5) 11/05/17 08:13 - Constitutional Appears: Well, Non-toxic, No Acute Distress - Head Exam Head Exam: ATRAUMATIC, NORMAL INSPECTION - Respiratory Exam Respiratory Exam: NORMAL BREATHING PATTERN. absent: Respiratory Distress - Cardiovascular Exam Cardiovascular Exam: +S1, +S2. absent: Tachycardia - GI/Abdominal Exam GI & Abdominal Exam: Soft, Tenderness (mild tenderness around incision site). absent: Distended, Firm, Guarding, Rigid, Rebound Additional comments: Dressing clean/dry/intact - Neurological Exam Neurological Exam: Alert, Awake, Oriented x3 - Psychiatric Exam Psychiatric exam: Normal Affect, Normal Mood - Skin Skin Exam: Dry, Normal Color, Warm Assessment and Plan - Assessment and Plan (Free Text) Assessment: 72yo F with ascending colon intussuscepting into transverse colon likely secondary to Cecal mass with Liver mets s/p Laparoscopic converted to open right hemicolectomy with Liver biopsy POD#1 - Afebrile, VSS - Chisholm removed this AM - Lovenox to start today for DVT Prophylaxis - Encouraged ambulation and IS use - Will monitor for return of bowel function - Advanced to [facility] today - Will FU Pathology from OR for colon and liver masses - Discussed plan with Dr. William Branch PGY-3
[2017-11-06] MEDS: Sodium Chloride 0.9% 1,000 ML IV SCH (17:01)
--- NOTE | 2017-11-06 18:29 | CP.PCM.PN ---
Subjective - Date & Time of Evaluation Date of Evaluation: 11/06/17 Time of Evaluation: 11:10 - Subjective Subjective: Seen and examined at the bedside earlier today, postop day #1, status post open right hemicolectomy with liver biopsy, patient does have postop pain but no acute distress, pain is tolerable, denies nausea, vomiting, fever or chills shortness of breath or chest pain. Reports belching, no flatus or BM. No acute overnight events. Objective - Vital Signs/Intake and Output Vital Signs (last 24 hours): Temp Pulse Resp BP Pulse Ox 98.2 F 69 21 166/94 H 96 11/06/17 10:04 11/06/17 18:00 11/06/17 10:04 11/06/17 10:04 11/06/17 10:04 Intake and Output: 11/06/17 11/06/17 06:59 18:59 Intake Total 0 520 Output Total 825 400 Balance -825 120 - Medications Medications: Current Medications Acetaminophen (Tylenol 325mg Tab) 650 mg PO Q6H PRN PRN Reason: Pain, Mild (1-3) Last Admin: 11/04/17 18:38 Dose: 650 mg Atenolol (Tenormin) 25 mg PO BID [facility] Last Admin: 11/06/17 17:01 Dose: 25 mg Benzonatate (Tessalon Perles) 100 mg PO TID [facility] Last Admin: 11/06/17 17:01 Dose: 100 mg Enoxaparin Sodium (Lovenox) 40 mg SC DAILY [facility] PRN Reason: Protocol Last Admin: 11/06/17 10:30 Dose: 40 mg Guaifenesin (Robitussin) 100 mg PO Q4H PRN PRN Reason: Cough Last Admin: 11/03/17 19:25 Dose: 100 mg Hydralazine HCl (Apresoline) 10 mg PO QID PRN PRN Reason: for sbp>170 Last Admin: 11/04/17 08:43 Dose: 10 mg Hydralazine HCl (Apresoline) 10 mg IVP Q6 PRN PRN Reason: for SBP>160 Hydromorphone HCl (Dilaudid) 0.5 mg IVP Q4H PRN PRN Reason: Pain, moderate (4-7) Last Admin: 11/06/17 17:12 Dose: 0.5 mg Sodium Chloride (Sodium Chloride 0.9%) 1,000 mls @ 50 mls/hr IV .Q20H [facility] Last Admin: 11/06/17 17:01 Dose: 50 mls/hr Lisinopril (Zestril) 20 mg PO DAILY [facility] Last Admin: 11/06/17 10:31 Dose: 20 mg Metoprolol Tartrate (Lopressor) 5 mg IV Q6H [facility] Last Admin: 11/06/17 15:38 Dose: Not Given Ondansetron HCl (Zofran Inj) 4 mg IVP Q4H PRN PRN Reason: Nausea/Vomiting Last Admin: 11/06/17 17:05 Dose: 4 mg Ondansetron HCl (Zofran Inj) 4 mg IVP ONCE PRN PRN Reason: Nausea/Vomiting Oxycodone/Acetaminophen (Percocet 5/325 Mg Tab) 1 tab PO Q4H PRN PRN Reason: Pain, Mild (1-3) Stop: 11/08/17 11:15 - Labs Labs: 11/06/17 06:00 11/06/17 05:00 PT 15.9 SECONDS (9.4-12.5) H 11/05/17 08:13 INR 1.37 (0.93-1.08) H 11/05/17 08:13 APTT 32.0 Seconds (25.1-36.5) 11/05/17 08:13 - Constitutional Appears: No Acute Distress - Eye Exam Eye Exam: Normal appearance. absent: Scleral icterus - ENT Exam ENT Exam: Mucous Membranes Moist - Respiratory Exam Respiratory Exam: NORMAL BREATHING PATTERN. absent: Respiratory Distress - Cardiovascular Exam Cardiovascular Exam: +S1, +S2 - GI/Abdominal Exam GI & Abdominal Exam: Soft, Tenderness, Diminished Bowel Sounds Additional comments: surgical dressing dry and intact - Extremities Exam Extremities Exam: absent: Calf Tenderness, Pedal Edema - Neurological Exam Neurological Exam: Alert, Awake, Oriented x3 Assessment and Plan - Assessment and Plan (Free Text) Assessment: Assessment: Ascending colonic intussusception into transverse colon, colon biopsies positive for adenocarcinoma Status post open right hemicolectomy with liver biopsy Elevated CEA, 119.0 Anemia Weight loss Plan: diet as per surgery, currently nothing by mouth on Lovenox Encouraged incentive spirometer follow-up surgical pathology Monitor H&H As per surgical team Seen and discussed with Dr. Leblanc.
--- NOTE | 2017-11-06 20:01 | PN ---
DATE: 11/06/2017 LOCATION: The patient is in room 366, bed 2. REASON FOR CONSULTATION AND FOLLOWUP: Hypertension, sinus tachycardia, intestinal intussusception, the patient is postop colon surgery and biopsy of the liver metastatic lesion. SUBJECTIVE: The patient is lying flat in bed without chest pain, shortness of breath, or palpitation. The patient has abdominal pain in the surgical site, but is getting less. PHYSICAL EXAMINATION: VITAL SIGNS: Blood pressure 166/94, yesterday was 116/68; respirations 21; pulse 66; and temperature 98.2. HEENT: Head is normocephalic. Eyes: Pupils normal. Conjunctivae slightly pale. NECK: JVP low. Carotids equal. THORAX: AP diameter normal. LUNGS: No rales. CARDIOVASCULAR: S1 and S2. ABDOMEN: Soft, nontender. No organomegaly. Bowel sounds normal. The patient abdomen has surgical laparotomy, dressing is on. EXTREMITIES: No clubbing. No cyanosis. LABORATORY DATA: WBC 13.5, hemoglobin 10.9, hematocrit 34.9, and platelets 486. Sodium 144, potassium 3.7, BUN 9, and creatinine 0.7. AST 53. ALT 22. Total protein 5.2 and albumin 2.3. DIAGNOSES: Carcinoma of the colon and metastasis of the liver; hypertension; sinus tachycardia; anemia; status post surgery, colon resection, and biopsy of metastatic liver lesion. PLAN: The patient's most recent echo showed LV ejection fraction of 55%, trace aortic regurgitation, mild tricuspid regurgitation, and mild mitral regurgitation. The patient is on hydralazine 10 mg IV q. 6 hours p.r.n., metoprolol 5 mg IV q. 6 hours, atenolol 25 mg b.i.d., and lisinopril 20 mg daily. We will continue present therapy. Monitor blood pressure. If it stays high, we will adjust the medication. Part of the blood pressure elevation may be due to abdominal pains postsurgical. We will follow with you. Sherman Do MD
[2017-11-06 20:05] VITALS: RESP 20
--- NOTE | 2017-11-06 20:55 | OP ---
PROCEDURE DATE: PREOPERATIVE DIAGNOSIS: Carcinoma of the cecum with intussusception. POSTOPERATIVE DIAGNOSIS: Carcinoma of the cecum with intussusception. OPERATION PERFORMED: Laparoscopy, liver biopsy, and right hemicolectomy open. SURGEON: Cristi Thomas MD FIELD HAULER: . FINDINGS: Intussuscepted polyp with tumor in a widely metastatic liver disease. DESCRIPTION OF PROCEDURE: In the operating room, the patient was identified by name, name of the procedure, laterality, placed in lithotomy and with a Chisholm. An infraumbilical incision was made, opened the abdomen and was entered with a 12-mm opening 5-mm, eventually a 12 was aided laterally which gave us better visualization. The abdomen was explored, there was a tumor obviously in the liver. We dissected the omentum off the transverse colon; however, because of the twist, the anatomy was difficult to ascertain and the abdomen was opened through a limited upper midline incision. This allowed rapid prolapse of the mass out that was readily available. The distal ileum was identified. The mesentery was taken down very quickly and the tumor from the duodenum. At a point of election, the transverse colon was divided with BELKIS, distal ileum was divided with BELKIS, the mesentery taken down by serial dissection using harmonic, and eventually the tumor came up very nicely. Several bleeding sites were clamped and tied and the tumor removed and showing a large polyp in the tumor. The wound was copiously irrigated and dried. Liver biopsy was done with a TruCut needle biopsy x2 from left the lobe by the falciform ligament, bleeding was minimal. Hemostasis was excellent. At first, sponge and needle count was incorrect. A clamp was found in the abdomen and removed. The second and third counts were normal. The omentum was put in its normal position. Distal ileum having been aligned with the transverse colon using silks, GIAs were run and fired. The opening was then closed with TA-60 and with a TA-60. The wound was reinforced with silk, mesentery was closed with Vicryl. The abdomen was unremarkable, was irrigated and dried. The incision was closed with running #1 PDS above and below and tied in the middle with a buried knot and closed with subcuticular stitches and Dermabond. The patient was taken to recovery room in good condition on the SCIP protocol. Sponge and needle count finally was correct. Cristi Thomas MD
[2017-11-07] MEDS: HYDROmorphone 0.5 mg/0.5 ml ISec IVP PRN ×2 (05:55→14:32)
[2017-11-07] MEDS: Sodium Chloride 0.9% 1,000 ML IV SCH (05:57)
[2017-11-07 06:31] LABS: HEMOGLOBIN 10.7 g/dL (12.0-16.0); MEAN CELL VOLUME 82.1 fl (80.0-105.0); MEAN CORPUSCULAR HEMOGLOBIN 25.2 pg (25.0-35.0); MEAN CORPUSCULAR HGB CONC 30.7 g/dl (31.0-37.0); MEAN PLATELET VOLUME 9.5 fl (7.0-11.0); RBC 4.25 10^6/uL (3.5-6.1); RED CELL DISTRIBUTION WIDTH 15.8 % (11.5-14.5); WHITE BLOOD COUNT 13.7 10^3/ul (4.5-11.0)
[2017-11-07 06:44] LABS: ALB/GLOB RATIO 0.8 (1.1-1.8); ALBUMIN 2.6 g/dL (3.0-4.8); ALT/SGPT 27 U/L (7-56); AST/SGOT 51 U/L (14-36); BLOOD UREA NITROGEN 13 mg/dL (7-21); CALCIUM 9.3 mg/dL (8.4-10.5); GFR AFRICAN-AMERICAN > 60; GFR NON-AFRICAN AMERICAN > 60
[2017-11-07] MEDS ORDERED: Alum-Mag Hydrox-Simethicone Susp (30 mL) PO ONE (09:37)
--- NOTE | 2017-11-07 09:54 | CP.PCM.PN ---
Subjective - Date & Time of Evaluation Date of Evaluation: 11/07/17 Time of Evaluation: 09:51 - Subjective Subjective: Surgery: Dr. Thomas Pt seen and examined. No acute overnight events. Pt states she had one episode of vomiting yesterday and had some nausea overnight but feels better now. Pain is well controlled. Pt also states she has a productive cough that kept her up at night. Denies F/C. Objective - Vital Signs/Intake and Output Vital Signs (last 24 hours): Temp Pulse Resp BP Pulse Ox 99.7 F H 70 20 165/98 H 100 11/07/17 09:06 11/07/17 09:06 11/07/17 09:06 11/07/17 09:06 11/07/17 09:06 Intake and Output: 11/07/17 11/07/17 06:59 18:59 Intake Total 540 0 Balance 540 0 - Medications Medications: Current Medications Acetaminophen (Tylenol 325mg Tab) 650 mg PO Q6H PRN PRN Reason: Pain, Mild (1-3) Last Admin: 11/04/17 18:38 Dose: 650 mg Atenolol (Tenormin) 25 mg PO BID [facility] Last Admin: 11/06/17 17:01 Dose: 25 mg Benzonatate (Tessalon Perles) 100 mg PO TID [facility] Last Admin: 11/06/17 17:01 Dose: 100 mg Enoxaparin Sodium (Lovenox) 40 mg SC DAILY [facility] PRN Reason: Protocol Last Admin: 11/06/17 10:30 Dose: 40 mg Guaifenesin (Robitussin) 100 mg PO Q4H PRN PRN Reason: Cough Last Admin: 11/03/17 19:25 Dose: 100 mg Hydralazine HCl (Apresoline) 10 mg PO QID PRN PRN Reason: for sbp>170 Last Admin: 11/04/17 08:43 Dose: 10 mg Hydralazine HCl (Apresoline) 10 mg IVP Q6 PRN PRN Reason: for SBP>160 Hydromorphone HCl (Dilaudid) 0.5 mg IVP Q4H PRN PRN Reason: Pain, moderate (4-7) Last Admin: 11/07/17 05:55 Dose: 0.5 mg Lisinopril (Zestril) 20 mg PO DAILY [facility] Last Admin: 11/06/17 10:31 Dose: 20 mg Metoprolol Tartrate (Lopressor) 25 mg PO BID [facility] Last Admin: 11/06/17 21:58 Dose: 25 mg Ondansetron HCl (Zofran Inj) 4 mg IVP Q4H PRN PRN Reason: Nausea/Vomiting Last Admin: 11/07/17 05:52 Dose: 4 mg Ondansetron HCl (Zofran Inj) 4 mg IVP ONCE PRN PRN Reason: Nausea/Vomiting Oxycodone/Acetaminophen (Percocet 5/325 Mg Tab) 1 tab PO Q4H PRN PRN Reason: Pain, Mild (1-3) Stop: 11/08/17 11:15 - Labs Labs: 11/07/17 06:00 11/07/17 06:00 PT 15.9 SECONDS (9.4-12.5) H 11/05/17 08:13 INR 1.37 (0.93-1.08) H 11/05/17 08:13 APTT 32.0 Seconds (25.1-36.5) 11/05/17 08:13 - Constitutional Appears: Well, No Acute Distress - Eye Exam Eye Exam: Normal appearance - ENT Exam ENT Exam: Mucous Membranes Moist - Respiratory Exam Respiratory Exam: Wheezes (b/l lower lobes ), NORMAL BREATHING PATTERN - Cardiovascular Exam Cardiovascular Exam: RRR - GI/Abdominal Exam GI & Abdominal Exam: Soft, Tenderness (around midline incision, beto in place , C/D/I ) - Extremities Exam Extremities Exam: absent: Tenderness - Neurological Exam Neurological Exam: Alert, Awake, Oriented x3 - Skin Skin Exam: Dry, Warm Assessment and Plan - Assessment and Plan (Free Text) Assessment: 72F s/p Ex-lap with R hemicolectomy; POD#2 Plan: - Will keep on liquids for now since pt had an episode of vomiting and denies flatus/BM - cont to encourage ambulation/IS use - d/w Dr. William Camacho, PGY-3 Surgery
[2017-11-07] MEDS: Enoxaparin 40 mg Syringe SC SCH (10:01)
--- NOTE | 2017-11-07 12:19 | RAD ---
HISTORY: chest congestion, increased cough COMPARISON: 11/04/2017 FINDINGS: LUNGS: No active pulmonary disease. PLEURA: No significant pleural effusion identified, no pneumothorax apparent. CARDIOVASCULAR: Normal. OSSEOUS STRUCTURES: No significant abnormalities. VISUALIZED UPPER ABDOMEN: Normal. OTHER FINDINGS: None. IMPRESSION: No active disease.
--- NOTE | 2017-11-07 15:24 | CP.PCM.CON ---
History of Present Illness - History of Present Illness History of Present Illness: 72 year old female with PMH of tubal ligation came in to [facility] because of abdominal pain. She underwent CT scan of the abdomen and pelvis as an outpatient and showed liver and lung lesions as well as intussusception of the ascending colon into the transverse colon. She also had untintentional weight loss. She underwent right side hemicolectomy and had been doing well until yesterday when the patient developed fever post-op a day after. The patient denies headache or dizziness, no chest pain, no SOB, no nausea or vomiting but feels some reflux, no cough or colds, no sore throat, no diarrhea, no dysuria. Infectious Diseases consult is requested to further evaluate and manage. The fever has also not recurred. Review of Systems - Review of Systems All systems: reviewed and no additional remarkable complaints except (as per HPI ) Past Patient History - Infectious Disease Hx of Infectious Diseases: None - Past Social History Smoking Status: Never Smoked Alcohol: Social Drugs: Denies - CARDIAC Hx Cardiac Disorders: No - PULMONARY Hx Respiratory Disorders: No - NEUROLOGICAL Hx Neurological Disorder: No - HEENT Hx HEENT Problems: No - RENAL Hx Chronic Kidney Disease: No - ENDOCRINE/METABOLIC Hx Endocrine Disorders: No - HEMATOLOGICAL/ONCOLOGICAL Hx Blood Transfusions: No Hx Blood Transfusion Reaction: No - INTEGUMENTARY Hx Dermatological Problems: No - MUSCULOSKELETAL/RHEUMATOLOGICAL Hx Musculoskeletal Disorders: No - GASTROINTESTINAL Hx Gastrointestinal Disorders: No - GENITOURINARY/GYNECOLOGICAL Hx Genitourinary Disorders: No - PSYCHIATRIC Hx Psychophysiologic Disorder: No - SURGICAL HISTORY Hx Surgeries: Yes - ANESTHESIA Hx Anesthesia Reactions: No Hx Malignant Hyperthermia: No Meds Allergies/Adverse Reactions: Allergies Allergy/AdvReac Type Severity Reaction Status Date / Time No Known Allergies Allergy Verified 10/30/17 14:09 - Medications Medications: Current Medications Acetaminophen (Tylenol 325mg Tab) 650 mg PO Q6H PRN PRN Reason: Pain, Mild (1-3) Last Admin: 11/04/17 18:38 Dose: 650 mg Atenolol (Tenormin) 25 mg PO BID [facility] Last Admin: 11/07/17 10:01 Dose: 25 mg Benzonatate (Tessalon Perles) 100 mg PO TID [facility] Last Admin: 11/07/17 10:01 Dose: 100 mg Enoxaparin Sodium (Lovenox) 40 mg SC DAILY [facility] PRN Reason: Protocol Last Admin: 11/07/17 10:01 Dose: 40 mg Guaifenesin (Robitussin) 100 mg PO Q4H PRN PRN Reason: Cough Last Admin: 11/03/17 19:25 Dose: 100 mg Hydralazine HCl (Apresoline) 10 mg PO QID PRN PRN Reason: for sbp>170 Last Admin: 11/04/17 08:43 Dose: 10 mg Hydralazine HCl (Apresoline) 10 mg IVP Q6 PRN PRN Reason: for SBP>160 Hydromorphone HCl (Dilaudid) 0.5 mg IVP Q4H PRN PRN Reason: Pain, moderate (4-7) Last Admin: 11/07/17 05:55 Dose: 0.5 mg Lisinopril (Zestril) 20 mg PO DAILY [facility] Last Admin: 11/07/17 10:01 Dose: 20 mg Metoprolol Tartrate (Lopressor) 25 mg PO BID [facility] Last Admin: 11/07/17 10:01 Dose: 25 mg Ondansetron HCl (Zofran Inj) 4 mg IVP Q4H PRN PRN Reason: Nausea/Vomiting Last Admin: 11/07/17 05:52 Dose: 4 mg Ondansetron HCl (Zofran Inj) 4 mg IVP ONCE PRN PRN Reason: Nausea/Vomiting Oxycodone/Acetaminophen (Percocet 5/325 Mg Tab) 1 tab PO Q4H PRN PRN Reason: Pain, Mild (1-3) Stop: 11/08/17 11:15 Physical Exam - Constitutional Appears: Non-toxic - Head Exam Head Exam: NORMAL INSPECTION - ENT Exam ENT Exam: Mucous Membranes Moist - Neck Exam Neck exam: Negative for: Meningismus - Respiratory Exam Respiratory Exam: Decreased Breath Sounds - Cardiovascular Exam Cardiovascular Exam: +S1, +S2 - GI/Abdominal Exam GI & Abdominal Exam: Soft. absent: Tenderness Additional comments: surgical site is clean and non-tender Results - Vital Signs Recent Vital Signs: Last Vital Signs Temp 99.7 F H 11/07/17 09:06 Pulse 70 11/07/17 09:06 Resp 20 11/07/17 09:06 BP 165/98 H 11/07/17 10:01 Pulse Ox 100 11/07/17 09:06 - Labs Result Diagrams: 11/07/17 06:00 11/07/17 06:00 Labs: Laboratory Results - last 24 hr 11/07/17 11/07/17 06:00 06:00 WBC 13.7 H RBC 4.25 Hgb 10.7 L Hct 34.9 L MCV 82.1 MCH 25.2 MCHC 30.7 L RDW 15.8 H Plt Count 496 H MPV 9.5 Sodium 145 Potassium 3.6 Chloride 110 H Carbon Dioxide 28 Anion Gap 10 BUN 13 Creatinine 0.6 L Est GFR ( Amer) > 60 Est GFR (Non-Af Amer) > 60 Random Glucose 130 H Calcium 9.3 Total Bilirubin 0.2 AST 51 H ALT 27 Alkaline Phosphatase 126 Total Protein 5.9 Albumin 2.6 L Globulin 3.2 Albumin/Globulin Ratio 0.8 L Assessment & Plan - Assessment and Plan (Free Text) Plan: Assessment Post-op fever, resolved, R/O infection but currently no evidence identified ascending colon intussusception S/P laparoscopy, right hemicolectomy POD #2; biopsy showing carcinoma tubal ligation Plan Follow up blood cx, urine cx, PCT, CXR; will monitor off antibiotics
--- NOTE | 2017-11-07 17:34 | CP.PCM.PN ---
Subjective - Date & Time of Evaluation Date of Evaluation: 11/07/17 Time of Evaluation: 10:20 - Subjective Subjective: Seen and examined at the bedside earlier today, family at bedside. Patient continues to belch but no flatus or BM. Slowly taking in liquids. Patient ambulate bleeding and lovell. Denies current nausea, vomiting, or current abdominal pain, did have some nausea and vomiting but no hematemesis last night. Comfortable. No acute overnight events reported. Objective - Vital Signs/Intake and Output Vital Signs (last 24 hours): Temp Pulse Resp BP Pulse Ox 99.7 F H 70 20 157/95 H 100 11/07/17 09:06 11/07/17 09:06 11/07/17 09:06 11/07/17 17:15 11/07/17 09:06 Intake and Output: 11/07/17 11/07/17 06:59 18:59 Intake Total 540 180 Balance 540 180 - Medications Medications: Current Medications Acetaminophen (Tylenol 325mg Tab) 650 mg PO Q6H PRN PRN Reason: Pain, Mild (1-3) Last Admin: 11/04/17 18:38 Dose: 650 mg Atenolol (Tenormin) 25 mg PO BID [facility] Last Admin: 11/07/17 17:15 Dose: 25 mg Benzonatate (Tessalon Perles) 100 mg PO TID [facility] Last Admin: 11/07/17 17:15 Dose: 100 mg Enoxaparin Sodium (Lovenox) 40 mg SC DAILY [facility] PRN Reason: Protocol Last Admin: 11/07/17 10:01 Dose: 40 mg Guaifenesin (Robitussin) 100 mg PO Q4H PRN PRN Reason: Cough Last Admin: 11/03/17 19:25 Dose: 100 mg Hydralazine HCl (Apresoline) 10 mg PO QID PRN PRN Reason: for sbp>170 Last Admin: 11/04/17 08:43 Dose: 10 mg Hydralazine HCl (Apresoline) 10 mg IVP Q6 PRN PRN Reason: for SBP>160 Hydromorphone HCl (Dilaudid) 0.5 mg IVP Q4H PRN PRN Reason: Pain, moderate (4-7) Last Admin: 11/07/17 14:32 Dose: 0.5 mg Lisinopril (Zestril) 20 mg PO DAILY [facility] Last Admin: 11/07/17 10:01 Dose: 20 mg Metoprolol Tartrate (Lopressor) 25 mg PO BID [facility] Last Admin: 11/07/17 17:15 Dose: 25 mg Ondansetron HCl (Zofran Inj) 4 mg IVP Q4H PRN PRN Reason: Nausea/Vomiting Last Admin: 11/07/17 05:52 Dose: 4 mg Ondansetron HCl (Zofran Inj) 4 mg IVP ONCE PRN PRN Reason: Nausea/Vomiting Oxycodone/Acetaminophen (Percocet 5/325 Mg Tab) 1 tab PO Q4H PRN PRN Reason: Pain, Mild (1-3) Stop: 11/08/17 11:15 - Labs Labs: 11/07/17 06:00 11/07/17 06:00 PT 15.9 SECONDS (9.4-12.5) H 11/05/17 08:13 INR 1.37 (0.93-1.08) H 11/05/17 08:13 APTT 32.0 Seconds (25.1-36.5) 11/05/17 08:13 - Constitutional Appears: No Acute Distress - Eye Exam Eye Exam: Normal appearance. absent: Scleral icterus - ENT Exam ENT Exam: Mucous Membranes Moist - Respiratory Exam Respiratory Exam: NORMAL BREATHING PATTERN. absent: Respiratory Distress - Cardiovascular Exam Cardiovascular Exam: +S1, +S2 - GI/Abdominal Exam GI & Abdominal Exam: Soft, Tenderness (near incision area, beto open to air, dry and intact note discharge or erythema noted.) Assessment and Plan - Assessment and Plan (Free Text) Assessment: Assessment: Ascending colonic intussusception into transverse colon, colon biopsies positive for adenocarcinoma Status post open right hemicolectomy with liver biopsy Elevated CEA, 119.0 Anemia Weight loss Plan: on clear liquid, diet as per surgery on Lovenox Encouraged incentive spirometer follow-up surgical pathology Monitor H&H As per surgical team Seen and discussed with Dr. Leblanc.
[2017-11-07] MEDS ORDERED: Potassium Chloride 20 mEq/15 ml LIQ UD PO STA (17:36)
--- NOTE | 2017-11-07 18:49 | PN ---
DATE: 11/07/2017 SUBJECTIVE: The patient seen this morning in room 366, bed 2 with family at the bedside. She was out of bed earlier. She is awake, alert, and in good spirits. We are awaiting pathology report. PHYSICAL EXAMINATION: HEENT: Head and neck are unremarkable. Conjunctivae are pink. LUNGS: Good aeration, right and left. HEART: Regular, not tachycardic. ABDOMEN: Bandage, quiet, somewhat bloated or distended. EXTREMITIES: Show no edema. No calf tenderness IMPRESSION: A 48-hour postoperative with slight abdominal bloating. PLAN: Decrease p.o. intake in view of nausea and bloating. Continue postoperative course per surgical team. Await pathology report and then Oncology intervention and options to be presented. Cristi Crow MD
--- NOTE | 2017-11-07 23:24 | PN ---
DATE: REASON FOR CONSULTATION AND FOLLOWUP: Hypertension, sinus tachycardia, intestinal intussusception, status post colon surgery for metastatic neoplasm and intussusception of the bowel, status post laparoscopic liver biopsy and right hemicolectomy, open, for the carcinoma of the cecum and intussusception. SUBJECTIVE: The patient denies any chest pain, shortness of breath, or any palpitation. OBJECTIVE: GENERAL: Not in apparent distress, lying flat in the bed. Her daughter is at the bedside. VITAL SIGNS: As follows, temperature 99.7, heart rate 70, blood pressure 165/98. HEENT: PERRLA. Extraocular muscles intact. NECK: Supple. No carotid bruit or thyromegaly. CHEST: Clear to auscultation. HEART: S1 and S2 regular. ABDOMEN: Soft. EXTREMITIES: Clubbing and cyanosis negative. LABORATORY DATA: Blood workup as follows, WBC 13.5, hemoglobin 10.7, hematocrit 34.9, platelet count 496. Chemistry shows sodium 140, potassium 3.6, chloride 110, carbon dioxide 28, anion gap of 10, BUN 13, creatinine 0.6, total protein 5.9, albumin 2.6, albumin-globulin ratio 3.2. IMPRESSION: Carcinoma of the cecum, status post laparoscopic liver biopsy, right hemicolectomy open for carcinoma of the cecum and intussusception. 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 Most recent echocardiogram showed ejection fraction of 55%, trace aortic regurgitation, mild mitral regurgitation, and mild tricuspid regurgitation. The patient started p.o. last night. We were discontinued the IV Lopressor and put p.o. hydralazine. Continue beta-glendy. We will stop two beta-blockers, stop Tenormin. Continue metoprolol 25 mg b.i.d., and we will start low doses of antihypertensive medication as needed. The patient is running blood pressure high, so we will start 20 mg of lisinopril from tomorrow and we will discontinue IV hydralazine and put p.o. hydralazine p.r.n. Lisinopril 20 mg from tomorrow daily for high blood pressure. We will follow with you. Thank you for providing us the opportunity in taking care of the patient, Pippa Mccurdy. We will also supplement potassium elixir. Repeat the lab in the morning. Discontinue IV hydralazine and start p.o. hydralazine and supplement potassium. Sherman Martinez MD
[2017-11-08 07:18] LABS: HEMOGLOBIN 9.9 g/dL (12.0-16.0); MEAN CORPUSCULAR HEMOGLOBIN 24.8 pg (25.0-35.0); MEAN CORPUSCULAR HGB CONC 30.2 g/dl (31.0-37.0); MEAN PLATELET VOLUME 9.2 fl (7.0-11.0); RED CELL DISTRIBUTION WIDTH 15.8 % (11.5-14.5); WHITE BLOOD COUNT 10.8 10^3/ul (4.5-11.0)
[2017-11-08 07:21] LABS: ALB/GLOB RATIO 0.8 (1.1-1.8); ALBUMIN 2.6 g/dL (3.0-4.8); ALT/SGPT 16 U/L (7-56); AST/SGOT 53 U/L (14-36); BLOOD UREA NITROGEN 11 mg/dL (7-21); GFR AFRICAN-AMERICAN > 60; GFR NON-AFRICAN AMERICAN > 60
--- NOTE | 2017-11-08 09:17 | CP.PCM.PN ---
Subjective - Date & Time of Evaluation Date of Evaluation: 11/08/17 Time of Evaluation: 07:00 - Subjective Subjective: GENERAL SURGERY PROGRESS NOTE FOR DR. NEWSOME Patient seen and examined with family at bedside. She states that her abdominal pain is still there but she refused narcotic pain medication. Took Tylenol only. She is tolerating liquid diet. States she is hungry for more food. She denies nausea or vomiting. She hasn't passed flatus or had a BM yet. She is ambulating in the halls. She is using her IS. Objective - Vital Signs/Intake and Output Vital Signs (last 24 hours): Temp Pulse Resp BP Pulse Ox 99.5 F 84 20 157/95 H 98 11/07/17 16:00 11/07/17 16:00 11/07/17 16:00 11/07/17 17:15 11/07/17 16:00 Intake and Output: 11/08/17 11/08/17 06:59 18:59 Intake Total 840 Balance 840 - Medications Medications: Current Medications Acetaminophen (Tylenol 325mg Tab) 650 mg PO Q6H PRN PRN Reason: Pain, Mild (1-3) Last Admin: 11/08/17 08:30 Dose: 650 mg Benzonatate (Tessalon Perles) 100 mg PO TID [facility] Last Admin: 11/07/17 17:15 Dose: 100 mg Enoxaparin Sodium (Lovenox) 40 mg SC DAILY [facility] PRN Reason: Protocol Last Admin: 11/07/17 10:01 Dose: 40 mg Guaifenesin (Robitussin) 100 mg PO Q4H PRN PRN Reason: Cough Last Admin: 11/03/17 19:25 Dose: 100 mg Hydralazine HCl (Apresoline) 10 mg PO QID PRN PRN Reason: for sbp>170 Last Admin: 11/04/17 08:43 Dose: 10 mg Hydromorphone HCl (Dilaudid) 0.5 mg IVP Q4H PRN PRN Reason: Pain, moderate (4-7) Last Admin: 11/07/17 14:32 Dose: 0.5 mg Lisinopril (Zestril) 20 mg PO DAILY [facility] Metoprolol Tartrate (Lopressor) 25 mg PO BID [facility] Last Admin: 11/07/17 17:15 Dose: 25 mg Ondansetron HCl (Zofran Inj) 4 mg IVP Q4H PRN PRN Reason: Nausea/Vomiting Last Admin: 11/07/17 05:52 Dose: 4 mg Ondansetron HCl (Zofran Inj) 4 mg IVP ONCE PRN PRN Reason: Nausea/Vomiting Oxycodone/Acetaminophen (Percocet 5/325 Mg Tab) 1 tab PO Q4H PRN PRN Reason: Pain, Mild (1-3) Stop: 11/08/17 11:15 Pantoprazole Sodium (Protonix Inj) 40 mg IVP DAILY [facility] - Labs Labs: 11/08/17 06:30 11/08/17 06:30 PT 15.9 SECONDS (9.4-12.5) H 11/05/17 08:13 INR 1.37 (0.93-1.08) H 11/05/17 08:13 APTT 32.0 Seconds (25.1-36.5) 11/05/17 08:13 - Constitutional Appears: Non-toxic, No Acute Distress - Head Exam Head Exam: ATRAUMATIC, NORMAL INSPECTION - Eye Exam Eye Exam: EOMI, Normal appearance - Respiratory Exam Respiratory Exam: NORMAL BREATHING PATTERN. absent: Respiratory Distress - Cardiovascular Exam Cardiovascular Exam: +S1, +S2. absent: Tachycardia - GI/Abdominal Exam GI & Abdominal Exam: Soft. absent: Distended, Firm, Guarding, Rigid, Tenderness , Rebound Additional comments: beto in place over midline incision, no signs of erythema, drainage - Neurological Exam Neurological Exam: Alert, Awake, Oriented x3 - Psychiatric Exam Psychiatric exam: Normal Affect, Normal Mood - Skin Skin Exam: Dry, Normal Color, Warm Assessment and Plan - Assessment and Plan (Free Text) Assessment: 72yo F with ascending colon intussuscepting into transverse colon likely secondary to Cecal mass with Liver mets s/p Laparoscopic converted to open right hemicolectomy with Liver biopsy POD#3 - Afebrile, VSS - Leukocytosis resolved - Low albumin. Ensure ordered - Lovenox for DVT Prophylaxis - Encouraged ambulation and IS use - Tolerating liquid diet, advanced to soft - Will monitor for return of bowel function - Will FU Pathology from OR for colon and liver masses - Discussed plan with Dr. William Branch PGY-3
[2017-11-08] MEDS ORDERED: Potassium Chloride 20 mEq ER Tab PO ONE ×2 (09:23→17:10)
[2017-11-08] MEDS: Enoxaparin 40 mg Syringe SC SCH (09:29)
--- NOTE | 2017-11-08 11:19 | CP.PCM.PN ---
<Dee Dee Chaudhari - Last Filed: 11/08/17 11:19> Subjective - Date & Time of Evaluation Date of Evaluation: 11/08/17 Time of Evaluation: 09:45 - Subjective Subjective: Seen and examined at the bedside, family patient. Patient denies nausea, vomiting, occasional abdominal discomfort but controlled. Positive belching, no flatus or BM. Patient reports feeling improvement in her abdomen. Patient does complain of epigastric burning. No complaints of shortness of breath or chest pain. Occasional cough, patient did have chest x-ray yesterday no acute findings. Denies fever or chills. Objective - Vital Signs/Intake and Output Vital Signs (last 24 hours): Temp Pulse Resp BP Pulse Ox 99.5 F 72 20 160/90 H 98 11/07/17 16:00 11/08/17 09:28 11/07/17 16:00 11/08/17 09:28 11/07/17 16:00 Intake and Output: 11/08/17 11/08/17 06:59 18:59 Intake Total 840 Balance 840 - Medications Medications: Current Medications Acetaminophen (Tylenol 325mg Tab) 650 mg PO Q6H PRN PRN Reason: Pain, Mild (1-3) Last Admin: 11/08/17 08:30 Dose: 650 mg Benzonatate (Tessalon Perles) 100 mg PO TID [facility] Last Admin: 11/08/17 09:27 Dose: 100 mg Enoxaparin Sodium (Lovenox) 40 mg SC DAILY [facility] PRN Reason: Protocol Last Admin: 11/08/17 09:29 Dose: 40 mg Guaifenesin (Robitussin) 100 mg PO Q4H PRN PRN Reason: Cough Last Admin: 11/03/17 19:25 Dose: 100 mg Hydralazine HCl (Apresoline) 10 mg PO QID PRN PRN Reason: for sbp>170 Last Admin: 11/04/17 08:43 Dose: 10 mg Hydromorphone HCl (Dilaudid) 0.5 mg IVP Q4H PRN PRN Reason: Pain, moderate (4-7) Last Admin: 11/07/17 14:32 Dose: 0.5 mg Lisinopril (Zestril) 20 mg PO DAILY [facility] Last Admin: 11/08/17 09:28 Dose: 20 mg Metoprolol Tartrate (Lopressor) 25 mg PO BID [facility] Last Admin: 11/08/17 09:27 Dose: 25 mg Ondansetron HCl (Zofran Inj) 4 mg IVP Q4H PRN PRN Reason: Nausea/Vomiting Last Admin: 11/07/17 05:52 Dose: 4 mg Ondansetron HCl (Zofran Inj) 4 mg IVP ONCE PRN PRN Reason: Nausea/Vomiting Oxycodone/Acetaminophen (Percocet 5/325 Mg Tab) 1 tab PO Q4H PRN PRN Reason: Pain, Mild (1-3) Stop: 11/08/17 11:15 Pantoprazole Sodium (Protonix Inj) 40 mg IVP DAILY [facility] Last Admin: 11/08/17 09:28 Dose: 40 mg - Labs Labs: 11/08/17 06:30 11/08/17 06:30 PT 15.9 SECONDS (9.4-12.5) H 11/05/17 08:13 INR 1.37 (0.93-1.08) H 11/05/17 08:13 APTT 32.0 Seconds (25.1-36.5) 11/05/17 08:13 - Constitutional Appears: No Acute Distress - Eye Exam Eye Exam: Normal appearance. absent: Scleral icterus - ENT Exam ENT Exam: Mucous Membranes Moist - Respiratory Exam Respiratory Exam: NORMAL BREATHING PATTERN. absent: Respiratory Distress - Cardiovascular Exam Cardiovascular Exam: +S1, +S2 - GI/Abdominal Exam GI & Abdominal Exam: Soft, Hypoactive Bowel Sounds. absent: Guarding, Tenderness, Rebound Additional comments: incision dry and intact no erythema or drainage, beto open to air - Extremities Exam Extremities Exam: absent: Calf Tenderness, Pedal Edema - Neurological Exam Neurological Exam: Alert, Awake, Oriented x3 - Skin Skin Exam: Dry, Warm Assessment and Plan - Assessment and Plan (Free Text) Assessment: Assessment: epigastric burning, likely reflux Ascending colonic intussusception into transverse colon, colon biopsies positive for adenocarcinoma Status post open right hemicolectomy with liver biopsy Elevated CEA, 119.0 Anemia Weight loss Plan: started on Protonix 40 mg IV as per surgery starting on soft diet, recommend patient to chew food well and eat slowly on Lovenox follow-up surgical pathology Monitor H&H Encouraged incentive spirometer As per surgical team Seen and discussed with Dr. Leblanc. <Rocio Leblanc V - Last Filed: 11/08/17 20:11> Objective - Vital Signs/Intake and Output Vital Signs (last 24 hours): Temp Pulse Resp BP Pulse Ox 98.4 F 75 20 141/87 98 11/08/17 18:09 11/08/17 18:34 11/08/17 18:09 11/08/17 18:34 11/08/17 18:09 - Medications Medications: Current Medications Acetaminophen (Tylenol 325mg Tab) 650 mg PO Q6H PRN PRN Reason: Pain, Mild (1-3) Last Admin: 11/08/17 08:30 Dose: 650 mg Benzonatate (Tessalon Perles) 100 mg PO TID [facility] Last Admin: 11/08/17 18:34 Dose: 100 mg Enoxaparin Sodium (Lovenox) 40 mg SC DAILY [facility] PRN Reason: Protocol Last Admin: 11/08/17 09:29 Dose: 40 mg Guaifenesin (Robitussin) 100 mg PO Q4H PRN PRN Reason: Cough Last Admin: 11/03/17 19:25 Dose: 100 mg Hydralazine HCl (Apresoline) 10 mg PO QID PRN PRN Reason: for sbp>170 Last Admin: 11/04/17 08:43 Dose: 10 mg Hydromorphone HCl (Dilaudid) 0.5 mg IVP Q4H PRN PRN Reason: Pain, moderate (4-7) Last Admin: 11/07/17 14:32 Dose: 0.5 mg Lisinopril (Zestril) 20 mg PO DAILY [facility] Last Admin: 11/08/17 09:28 Dose: 20 mg Metoprolol Tartrate (Lopressor) 25 mg PO BID [facility] Last Admin: 11/08/17 18:34 Dose: 25 mg Ondansetron HCl (Zofran Inj) 4 mg IVP Q4H PRN PRN Reason: Nausea/Vomiting Last Admin: 11/07/17 05:52 Dose: 4 mg Ondansetron HCl (Zofran Inj) 4 mg IVP ONCE PRN PRN Reason: Nausea/Vomiting Pantoprazole Sodium (Protonix Inj) 40 mg IVP DAILY [facility] Last Admin: 01/12/18 09:28 Dose: 40 mg - Labs Labs: 11/08/17 06:30 11/08/17 06:30 PT 15.9 SECONDS (9.4-12.5) H 11/05/17 08:13 INR 1.37 (0.93-1.08) H 11/05/17 08:13 APTT 32.0 Seconds (25.1-36.5) 11/05/17 08:13 Attending/Attestation - Attestation I have personally seen and examined this patient.: Yes I have fully participated in the care of the patient.: Yes I have reviewed all pertinent clinical information, including history, physical exam and plan: Yes Notes (Text): This is an addendum to GI progress report dictated by Dee Dee Chaudhari APN.The patient was seen and examined earlier. Medical records, lab studies, imagings were reviewed. Last 24 hours events reviewed. Agreed with the above treatment plan as outlined in Dee Dee Chaudhari APN's notes the with the addition of the following Tolerating the diet Status post right hemicolectomy Pathology report reviewed metastatic adenocarcinoma of colon. Liver biopsy possible for metastases Continue postoperative as per surgery and advance diet as per surgery Oncological follow-up 11/08/17 20:10
--- NOTE | 2017-11-08 12:20 | CP.PCM.PN ---
Subjective - Date & Time of Evaluation Date of Evaluation: 11/08/17 Time of Evaluation: 11:00 - Subjective Subjective: Patient is resting comfortably in bed, no fevers, no abdominal pain currently, tolerating liquid diet, still without bowel movement. Objective - Vital Signs/Intake and Output Vital Signs (last 24 hours): Temp Pulse Resp BP Pulse Ox 99.5 F 84 20 157/95 H 98 11/07/17 16:00 11/07/17 16:00 11/07/17 16:00 11/07/17 17:15 11/07/17 16:00 Intake and Output: 11/08/17 11/08/17 06:59 18:59 Intake Total 840 Balance 840 - Medications Medications: Current Medications Acetaminophen (Tylenol 325mg Tab) 650 mg PO Q6H PRN PRN Reason: Pain, Mild (1-3) Last Admin: 11/08/17 08:30 Dose: 650 mg Benzonatate (Tessalon Perles) 100 mg PO TID [facility] Last Admin: 11/07/17 17:15 Dose: 100 mg Enoxaparin Sodium (Lovenox) 40 mg SC DAILY [facility] PRN Reason: Protocol Last Admin: 11/07/17 10:01 Dose: 40 mg Guaifenesin (Robitussin) 100 mg PO Q4H PRN PRN Reason: Cough Last Admin: 11/03/17 19:25 Dose: 100 mg Hydralazine HCl (Apresoline) 10 mg PO QID PRN PRN Reason: for sbp>170 Last Admin: 11/04/17 08:43 Dose: 10 mg Hydromorphone HCl (Dilaudid) 0.5 mg IVP Q4H PRN PRN Reason: Pain, moderate (4-7) Last Admin: 11/07/17 14:32 Dose: 0.5 mg Lisinopril (Zestril) 20 mg PO DAILY [facility] Metoprolol Tartrate (Lopressor) 25 mg PO BID [facility] Last Admin: 11/07/17 17:15 Dose: 25 mg Ondansetron HCl (Zofran Inj) 4 mg IVP Q4H PRN PRN Reason: Nausea/Vomiting Last Admin: 11/07/17 05:52 Dose: 4 mg Ondansetron HCl (Zofran Inj) 4 mg IVP ONCE PRN PRN Reason: Nausea/Vomiting Oxycodone/Acetaminophen (Percocet 5/325 Mg Tab) 1 tab PO Q4H PRN PRN Reason: Pain, Mild (1-3) Stop: 11/08/17 11:15 Pantoprazole Sodium (Protonix Inj) 40 mg IVP DAILY [facility] - Labs Labs: 11/08/17 06:30 11/08/17 06:30 PT 15.9 SECONDS (9.4-12.5) H 11/05/17 08:13 INR 1.37 (0.93-1.08) H 11/05/17 08:13 APTT 32.0 Seconds (25.1-36.5) 11/05/17 08:13 - Constitutional Appears: Non-toxic, Chronically Ill - Head Exam Head Exam: NORMAL INSPECTION - ENT Exam ENT Exam: Mucous Membranes Moist - Neck Exam Neck Exam: absent: Meningismus - Respiratory Exam Respiratory Exam: Decreased Breath Sounds - Cardiovascular Exam Cardiovascular Exam: +S1, +S2 - GI/Abdominal Exam GI & Abdominal Exam: Soft. absent: Tenderness Additional comments: surgical sites clean Assessment and Plan - Assessment and Plan (Free Text) Plan: Assessment Post-op fever, resolved, currently no evidence of infection identified ascending colon intussusception S/P laparoscopy, right hemicolectomy POD #2; biopsy showing carcinoma tubal ligation Plan Follow up blood cx, urine cx; PCT is only 0.26, CXR does not show pneumonia; will continue to monitor off antibiotics since she is at risk for nosocomial infections
--- NOTE | 2017-11-08 19:33 | PN ---
DATE: 11/08/2017 LOCATION: The patient is in 366, bed 2. REASON FOR CONSULTATION AND FOLLOWUP: Hypertension, sinus tachycardia, intestinal intussusception status post colon surgery for metastatic neoplasm and intussusception of the bowel status post liver biopsy and right hemicolectomy, open hemicolectomy for carcinoma of the cecum and intussusception. SUBJECTIVE: The patient lying flat in bed without any chest pain, shortness of breath, palpitation. PHYSICAL EXAMINATION VITAL SIGNS: Blood pressure 161/90, pulse 72, afebrile and respirations 20. HEENT: Head is normocephalic. Eyes pupils normal. Conjunctivae slightly pale. NECK: JVP low. Carotids equal. THORAX: AP diameter normal. LUNGS: Clear. CARDIOVASCULAR: S1 and S2. ABDOMEN: Surgical scar. EXTREMITIES: No clubbing. No cyanosis. LABORATORY DATA: WBC 10.8, hemoglobin 9.9, hematocrit 32.8 and platelets 452. Sodium 143, potassium 3.4, BUN 11 and creatinine 0.6. AST 53, ALT 16, total protein 5.7, albumin 2.6. 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 Most recent echocardiogram showed left ventricular ejection fraction of 55%, trace aortic regurgitation, mild mitral regurgitation, mild tricuspid regurgitation. PLAN: We will give potassium therapy. We will repeat labs in the morning. The patient on metoprolol 25 b.i.d., lisinopril 20 daily. Since blood pressure is high, we will change Lopressor to 50 b.i.d., hydralazine 10 mg p.o. four times a day is already there. We will follow with you. Sherman Do MD
--- NOTE | 2017-11-08 20:39 | PN ---
DATE: 11/08/2017 SUBJECTIVE: The patient was seen this Saturday morning in room 366, bed 1 with her daughter at the bedside. She is alert, clear, and in good spirits. Her diet has been increased and she is doing rather well. No gas, flatus or bowel movement as of yet. Pathology is still pending. PHYSICAL EXAMINATION: LUNGS: Show good aeration right and left. HEART: Not tachycardic. ABDOMEN: Soft. EXTREMITIES: Show no edema. PLAN: Continue advanced diet for surgery. Increase activity. I explained to the patient how we are monitoring for bowel sounds, flatus, and bowel movement and may be ready for discharge home as early as tomorrow. Incentive spirometry will be reviewed with the patient. We will follow white count and temperatures as well. Cristi Crow MD
[2017-11-09 08:08] LABS: BASO # 0.01 K/mm3 (0.0-2.0); BASO % 0.1 % (0.0-3.0); EOS # 0.1 (0.0-0.7); EOS % 0.6 % (1.5-5.0); GRAN # 7.7 (1.4-6.5); GRAN % 78.1 % (50.0-68.0); HEMOGLOBIN 9.4 g/dL (12.0-16.0); LYMPH # 1.6 (1.2-3.4); LYMPH % 15.7 % (22.0-35.0); MEAN CORPUSCULAR HEMOGLOBIN 24.9 pg (25.0-35.0); MEAN CORPUSCULAR HGB CONC 30.4 g/dl (31.0-37.0); MEAN PLATELET VOLUME 9.3 fl (7.0-11.0); MONO # 0.5 (0.1-0.6); MONO % 5.5 % (1.0-6.0); RBC 3.77 10^6/uL (3.5-6.1); RED CELL DISTRIBUTION WIDTH 15.8 % (11.5-14.5); WHITE BLOOD COUNT 9.9 10^3/ul (4.5-11.0)
[2017-11-09 08:45] VITALS: TEMP 99.5; O2SAT 99
[2017-11-09 09:03] LABS: BLOOD UREA NITROGEN 9 mg/dL (7-21); CALCIUM 8.8 mg/dL (8.4-10.5); GFR AFRICAN-AMERICAN > 60; GFR NON-AFRICAN AMERICAN > 60; MAGNESIUM 1.9 mg/dL (1.7-2.2)
[2017-11-09] MEDS: Enoxaparin 40 mg Syringe SC SCH (09:41)
[2017-11-09] MEDS ORDERED: Potassium Chloride 20 mEq ER Tab PO ONE (11:19)
[2017-11-09] MEDS ORDERED: Potassium Phosphate 15 MMOLE in Dextrose 5% In Water 250 ML IVPB ONE (11:22)
[2017-11-09 12:07] VITALS: BP 138/80; PULSE 78
--- NOTE | 2017-11-09 13:10 | PN ---
DATE: This consult is for Dr. Leblanc. Dr. Chu is covering. SUBJECTIVE: The patient is lying in bed comfortable. She is status post right hemicolectomy for intussusception from a ascending colon cancer. She was found to have liver mets. She is tolerating solid food. She is passing stool. MEDICATIONS: Include metoprolol 25 mg b.i.d., Lovenox 40 mg once a day, pantoprazole 40 mg IV once a day, Robitussin, Tessalon Perles, and lisinopril 20 mg once a day. OBJECTIVE: VITAL SIGNS: Reveal temperature of 99.5, blood pressure of 166/86, and heart rate of 86. HEENT: Reveal sclerae to be white. Conjunctivae pink. NECK: Supple. CHEST: Reveal lungs to be clear. HEART: Reveals regular rate and rhythm. ABDOMEN: Soft. There is a well-healed midline incision. EXTREMITIES: Show no edema. LABORATORY DATA: Reveal white blood cell count 9.9 and hemoglobin 9.4. Chemistries reveal potassium of 3.4, BUN of 9, creatinine of 0.6, AST of 53, ALT of 16, and alkaline phosphatase of 127. IMPRESSION: Intussusception of the ascending colon secondary to a colon cancer with liver metastasis. RECOMMENDATIONS: 1. Continue postop care. 2. The patient will need Oncology evaluation for liver metastasis and chemotherapy. Danyel Chu MD
[2017-11-09] MEDS ORDERED: Potassium & Sodium Phosphate PO ONE (13:20)
--- NOTE | 2017-11-09 13:56 | PN ---
DATE: 11/09/2017 LOCATION: The patient is in room 366, bed 2. REASON FOR CONSULTATION AND FOLLOWUP: Hypertension, sinus tachycardia, intestinal intussusception, status post colon surgery for metastatic neoplasm and intussusception of the above, status post liver biopsy, and right hemicolectomy. SUBJECTIVE: The patient is lying flat in bed without chest pain, shortness of breath, or palpitation. PHYSICAL EXAMINATION: VITAL SIGNS: Blood pressure 164/88, respirations 20, pulse 85, and temperature 99.5. HEENT: Head is normocephalic. Eyes, pupils normal. Conjunctivae, slightly pale. NECK: JVP low. Carotids equal. THORAX: AP diameter normal. LUNGS: Clear. CARDIOVASCULAR: S1 and S2. ABDOMEN: Soft, had surgical incision. Bowel sounds normal. EXTREMITIES: No clubbing. No cyanosis. LABORATORY DATA: WBC 9.9, hemoglobin 9.4, hematocrit 30.9, and platelets 459. Sodium 142, potassium 3.4, BUN 9, and creatinine 0.6. Magnesium 1.9, glucose 72. DIAGNOSES: Carcinoma of cecum, status post right hemicolectomy, liver metastasis, status post biopsy of the liver metastatic lesion, carcinoma of cecum with intussusception, hypertension, sinus tachycardia, and anemia. Most recent echocardiogram showed the left ventricular ejection fraction of 55%, trace aortic regurgitation, mild mitral regurgitation, and mild tricuspid regurgitation. PLAN: For hypokalemia, we will give repeat therapy and we will repeat the blood work. The patient is on metoprolol 25 mg b.i.d., Lovenox 40 mg daily, and lisinopril 20 mg daily. We will add amlodipine 5 mg daily for high blood pressure, give potassium therapy. We will follow. Sherman Do MD
--- NOTE | 2017-11-09 16:54 | PN ---
DATE: SUBJECTIVE: Pippa Mccurdy was seen. OBJECTIVE: Her abdomen is soft, nontender. She has had a bowel movement. Feels very good. ASSESSMENT AND PLAN: I am okay for discharge. To be seen in my office in about a week. Note is made of the pathology. 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 Cristi Thomas MD
--- NOTE | 2017-11-09 17:36 | PN ---
DATE: 11/09/2017 SUBJECTIVE: The patient is in bed, in no acute distress, nontoxic. PHYSICAL EXAMINATION: VITAL SIGNS: Temperature is 98, blood pressure is 160/80, respiratory rate of 20 and heart rate of 85. HEENT: Unremarkable. NECK: Supple. LUNGS: Decreased breath sounds. HEART: Normal S1 and S2. ABDOMEN: Soft, nontender. LABORATORY DATA: Reveals a white count of 9.9, hemoglobin of 9 and platelets of 459. BUN of 9, creatinine of 0.6 and procalcitonin 0.26. Urinalysis is noted. Influenza is negative. Microbiology reveals the blood cultures are no growth. Review of orders reveals the patient to be on no antibiotics. Dr. Cristi Crow's note is reviewed. ASSESSMENT AND PLAN: This is a 72-year-old female patient with status post laparoscopy for ascending colon intussusception and right hemicolectomy, postprocedure day #3 with postprocedure fever that has resolved. No evidence of infection currently with cultures negative. Normal procalcitonin. Chest x-ray negative. Currently off of antibiotics. 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 Resection margins are negative for carcinoma. There are 13 benign lymph nodes, 0/13 nodes, with mild acute appendicitis. The liver is positive for metastatic adenocarcinoma. Overall prognosis is poor for this patient. She is at risk for developing nosocomial infections. Nakul Soriano MD
--- NOTE | 2017-11-11 02:36 | DS ---
HOSPITAL COURSE: This is a 72-year-old woman who I do not know. She was last to follow up for approximately 4 years presented to the office and seen, worked up, and admitted by Dr. Cornelius Crow for abdominal symptoms. Intussusception of the large intestine and liver mets were seen on CT scan of the abdomen and pelvis. The patient was admitted, underwent colonoscopy and biopsy of polyp, shown to be tubular adenoma. Surgical procedure was performed by Dr. Cristi Thomas. A section of transverse colon was resected and pathology was available late last night, shown to be moderately differentiated adenocarcinoma. The patient did amazing well postoperatively. She is followed by the surgical team as well as by ourselves. Her blood pressure is noted to be elevated. She reports that she does have history of hypertension, but has not taken medicines or had medical followup in the last many years. Medicines were started, she seemed to do well on lisinopril and metoprolol. Postoperatively, she reported minimal pain, took only Tylenol, did not want to take narcotic analgesics. Began to eat. Bowel sounds, flatus, diet was increased and today ready for discharge to home. FINAL DISCHARGE DIAGNOSES: 1. Intussusception of the colon, due to moderately differentiated adenocarcinoma of the colon. 2. Hypertension. PLAN: I spoke to the patient and then returned later to speak with her daughter at great length. A copy of reports was given to them including pathology report and surgical specimen as well as the colonoscopy specimen, recent chest x-ray and the CT scan. They will be seeking followup with an Oncologist in [place] that the daughter knows and sees for her polycythemia. I told the patient I am available 20/05 for her and I am on-call this weekend. If there are any questions, she can feel free to give me a call. Prescriptions were sent for metoprolol tartrate b.i.d. and lisinopril once available at a local pharmacy. Cristi Crow MD [facility]
== END 2017-11-09 14:43 | disposition home or self-care (01) | DRG 330 ==
LOC: ED 13:59 → ERH 15:54 → 3RSO 17:25 → 3RNO 10-31 18:26
PROVIDERS: ADMIT Internal Medicine; ATTEND Internal Medicine
PROC: 0DBL8ZX Excision of Transverse Colon, Via Natural or Artificial Opening Endoscopic, Diagnostic (ICD-10-PCS; 2017-11-01)
PROC: 0DBN8ZZ Excision of Sigmoid Colon, Via Natural or Artificial Opening Endoscopic (ICD-10-PCS; 2017-11-01)
PROC: 0DTF0ZZ Resection of Right Large Intestine, Open Approach (ICD-10-PCS; principal; 2017-11-05 07:30)
PROC: 0DJD4ZZ Inspection of Lower Intestinal Tract, Percutaneous Endoscopic Approach (ICD-10-PCS; 2017-11-05 07:30)
PROC: 0FB23ZX Excision of Left Lobe Liver, Percutaneous Approach, Diagnostic (ICD-10-PCS; 2017-11-05 07:30)
DX: C18.0 Malignant neoplasm of cecum (principal); E44.0 Moderate protein-calorie malnutrition; C78.00 Secondary malignant neoplasm of unspecified lung; K56.1 Intussusception; C78.7 Secondary malignant neoplasm of liver and intrahepatic bile duct; K35.80 Unspecified acute appendicitis; D64.9 Anemia, unspecified; Z53.31 Laparoscopic surgical procedure converted to open procedure; I10 Essential (primary) hypertension; E87.6 Hypokalemia; Z68.22 Body mass index [BMI] 22.0-22.9, adult; R50.82 Postprocedural fever; K21.9 Gastro-esophageal reflux disease without esophagitis; R00.0 Tachycardia, unspecified; K64.8 Other hemorrhoids; Z98.51 Tubal ligation status